=== PATIENT | male | born 1960 | race Caucasian/White ===

== ENCOUNTER 2019-09-11 16:06 | Outpatient (CLI) | payer MEDICARE, SELFPAY ==
--- NOTE | ~2019-09-11 | XR_ITS ---
EXAMINATION: XR chest 2V 09/11/2019 16:27 INDICATION: Cough for 3 months PROCEDURE: 2 view chest COMPARISON: 05/03/2007 FINDINGS: The lungs are clear. The cardiomediastinal silhouette is within normal limits. There are no pleural effusions. There is no pneumothorax suspected. IMPRESSION: 1: NO ACUTE CARDIOPULMONARY DISEASE. Reviewed, dictated and finalized at location A.
== END 2019-09-11 16:07 | disposition home or self-care (01) ==
PROVIDERS: PCP Family Medicine; Visit Provider Physician Assistant
DX: R05 Cough (principal)
CPT/HCPCS: 71046

== ENCOUNTER → 2020-10-30 11:03 | Outpatient (CLI) | payer MEDICARE, SELFPAY ==
--- NOTE | ~2020-10-30 | XR_ITS ---
EXAMINATION: XR lumbar spine 2-3V DATE: 10/30/2020 11:23 INDICATION: Low back pain low back pain TECHNIQUE: Anteroposterior and lateral views of the lumbar spine, and cone-down lateral view of the l umbosacral junction were obtained. COMPARISON: 03/11/2014 FINDINGS: Bone alignment is normal. There is no fracture. The vertebral body heights are maintained. There is unchanged mild loss of intervertebral disc space height at L1-2 and L5-S1. Small degenerativ e osteophytes project from the anterior endplates of multiple vertebral bodies. There is [id number] rate facet osteoarthritis of the lower lumbar spine. The bowel gas pattern is normal. IMPRESSION: 1. Mild lumbar spondylosis without acute findings or significant interval change. Reviewed, dictated and finalized at location A. IMPRESSION: 1. Mild lumbar spondylosis without acute findings or significant interval tina blevins
== END ==
PROVIDERS: PCP Family Medicine; Visit Provider Physician Assistant
DX: M47.816 Spondylosis without myelopathy or radiculopathy, lumbar region (principal)
CPT/HCPCS: 72100

== ENCOUNTER 2021-03-28 09:37 | Outpatient (CLI) | payer MEDICARE, SELFPAY ==
--- NOTE | ~2021-03-28 | MR_ITS ---
EXAMINATION: MR lumbar spine wo [facility] EXAM DATE: 03/28/2021 10:29 INDICATION: Low back pain. Lumbar radiculopathy. TECHNIQUE: Multi-sequential, multiplanar MR images of the lumbar spine were obtained without contrast . Sagittal T1, T2, T2 fat saturation images. Axial T2 weighted images. Comparison is made to prior examination from 04/11/2014. FINDINGS: There is a congenitally narrow lumbar spinal canal as previously seen. Mild interval progression spon dylosis compared to that study. The conus medullaris terminates at the T12-L1 level and has normal si gnal intensity and morphology. Mild diffuse lumbar disc disease. Vertebral body heights are maintain ed. The vertebral bodies are aligned in the AP dimension. There are no suspicious marrow signal abn ormalities. Paraspinal soft tissue is unremarkable. Level by level evaluation: T12-L1: Disc does not extend beyond the endplate margin. Facet arthropathy: Mild to moderate. Neural foraminal stenosis: No stenosis. Central canal stenosis: No stenosis. L1-L2: There is a mild to moderate diffuse disc bulge. Facet arthropathy: Moderate. Neural foraminal stenosis: Mild to moderate left, mild right. Central canal stenosis: Mild to moderate superimposed on congenital. L2-L3: There is a moderate diffuse disc bulge. Facet arthropathy: Moderate to severe . Ligamentum flavum enlargement. Neural foraminal stenosis: Moderate left, mild to moderate right. Central canal stenosis: Moderate to severe superimposed on congenital. L3-L4: There is a moderate diffuse disc bulge. Facet arthropathy: Moderate to severe . Ligamentum flavum enlargement. Neural foraminal stenosis: Moderate right, mild to moderate left. Central canal stenosis: Moderate to severe superimposed on congenital. L4-L5: There is a moderate diffuse disc bulge. Facet arthropathy: Moderate bilateral. Neural foraminal stenosis: Moderate bilateral. Central canal stenosis: Moderate superimposed on congenital. L5-S1: There is a mild diffuse disc bulge. Facet arthropathy: Mild. Neural foraminal stenosis: Mild to moderate bilateral. Central canal stenosis: Mild bilateral. IMPRESSION: Congenitally narrow lumbar spinal canal with advanced mid lumbar facet arthropathy and di sc bulges contributing to L2-3 and L3-4 moderate to severe central canal stenosis. Reviewed, dictated and finalized at location A. NEL OPENER IMPRESSION: Congenitally narrow lumbar spinal canal with advanced mid lumbar fa cet arthropathy and disc bulges contributing to L2-3 and L3-4 moderate to sever e central canal stenosis.
== END 2021-03-28 09:38 | disposition home or self-care (01) ==
PROVIDERS: PCP Family Medicine; Visit Provider Nurse Practitioner Family
DX: M54.16 Radiculopathy, lumbar region (principal)
CPT/HCPCS: 72148

== ENCOUNTER 2022-07-14 15:25 | Outpatient (CLI) | payer MEDICARE, SELFPAY ==
--- NOTE | ~2022-07-14 | MR_ITS ---
EXAMINATION: MR lumbar spine wo con DATE: 07/14/2022 16:32 INDICATION: Low back pain and right leg pain and numbness TECHNIQUE: Magnetic resonance imaging (MRI) of the lumbar spine was performed without intravenous con trast. Sequences included sagittal T2-weighted FSE, sagittal T2-weighted FS FSE, sagittal T1-weighted FSE, and axial T2-weighted FSE. COMPARISON: Lumbar spine MR dated 03/28/2021 FINDINGS: Alignment is normal. Vertebral body heights are normal. Normal marrow signal. Mild disc height loss at L3-L4 and L4-L5. Glenoid is a congenitally small lumbar central canal. The conus medullaris termin ates at T12-L1. There is normal signal in the caudal spinal cord. Paravertebral soft tissues are unre markable. The following disc levels are specifically discussed: T12-L1: The disc does not extend beyond the endplate margin. There is moderate bilateral facet joint osteoarthritis. There is mild right neural foraminal stenosis. There is no central canal stenosis. L1-L2: Bilateral foraminal zone disc protrusions. There is severe bilateral facet joint osteoarthriti s. There is moderate left and mild to moderate right neural foraminal stenosis. There is moderate to severe central canal stenosis. L2-L3: Disc is bulging. There is hypertrophy of the ligamentum flavum. There is severe bilateral face t joint osteoarthritis. There is a small synovial cyst extending between the bilateral facet joints p osterior to the thecal sac which measures 8 mm left to right and 5 x 3 mm in maximal orthogonal dimen sions. There is mild to moderate right and moderate left neural foraminal stenosis. There is severe c entral canal stenosis. L3-L4: Disc is bulging. There is severe bilateral facet joint osteoarthritis. There is moderate right and mild to moderate left neural foraminal stenosis. There is moderate to severe central canal steno sis. L4-L5: Disc is bulging. There is moderate right and severe left facet joint osteoarthritis. There is moderate bilateral neural foraminal stenosis. There is moderate central canal stenosis. L5-S1: Disc is mildly bulging. There is mild bilateral facet joint osteoarthritis. There is mild to m oderate bilateral neural foraminal stenosis. There is mild central canal stenosis. IMPRESSION: 1. Multilevel moderate to severe central canal and mild to moderate neural foraminal stenosis through out the lumbar spine resulting from combination of mild lumbar spondylosis and moderate to severe fac et osteoarthritis superimposed over congenitally small central canal. Reviewed, dictated and finalized at location A. IUM REPRESENTATIVE IMPRESSION: 1. Multilevel moderate to severe central canal and mild to moderate neural fora sherie stenosis throughout the lumbar spine resulting from combination of mild l umbar spondylosis and moderate to severe facet osteoarthritis superimposed over congenitally small central canal.
== END 2022-07-14 15:26 | disposition home or self-care (01) ==
LOC: ANHIMG 15:27
PROVIDERS: PCP Family Medicine; Visit Provider Physician Assistant
DX: M54.16 Radiculopathy, lumbar region (principal); M48.00 Spinal stenosis, site unspecified
CPT/HCPCS: 72148

== ENCOUNTER 2023-06-03 09:33 | Outpatient (CLI) | payer MEDICARE, SELFPAY ==
--- NOTE | ~2023-06-03 | MR_ITS ---
MRI of the lumbar spine Clinical History: Stenosis, neurogenic claudication Technique: Axial T2-weighted images, and sagittal T1-weighted, T2-weighted, and T2 fat-sat images wer e acquired. COMPARISON: 07/14/2022 Findings: There is no fracture or subluxation of the lumbar spine. Vertebral bodies maintain normal h eight and alignment. At L1-L2, disc bulge and advanced facet arthropathy result in moderate to severe spinal canal stenosi s/thecal sac compression. There is advanced left neural foraminal narrowing, and moderate to advanced right neural foraminal narrowing. At L2-L3, there is disc bulge and severe facet arthropathy, resulting in severe spinal canal stenosis /thecal sac compression. Probable small right-sided synovial cyst present. There is moderate to sever e right neural foraminal narrowing, and severe left neural foraminal narrowing. At L3-L4, disc bulge and severe facet arthropathy result in severe spinal canal stenosis/thecal sac c ompression. There is moderate to advanced right neural foraminal narrowing, and moderate left neural foraminal narrowing. At L4-L5, there is disc bulge and severe facet arthropathy. There is minimal central canal stenosis. There is moderate to severe left neural foraminal narrowing, and severe right neural foraminal narrow ing. At L5-S1, there is minimal disc bulge and mild facet arthropathy. No central canal stenosis. There is mild to moderate bilateral neural foraminal narrowing. Paravertebral soft tissues are unremarkable. Impression: Severe degenerative spondylosis, as detailed above. Reviewed, dictated and finalized at [facility]. OW GLASS CUTTER OFF Impression: Severe degenerative spondylosis, as detailed above.
== END 2023-06-03 09:34 | disposition home or self-care (01) ==
PROVIDERS: PCP Family Medicine
DX: M48.062 Spinal stenosis, lumbar region with neurogenic claudication (principal); M47.896 Other spondylosis, lumbar region
CPT/HCPCS: 72148

== ENCOUNTER 2023-11-03 10:27 | Outpatient (CLI) | payer MEDICARE, SELFPAY ==
[2023-11-03 11:38] LABS: Influenza A QL RT-PCR Negative (Negative); Influenza B QL RT-PCR Negative (Negative); RSV RNA, RT-PCR Negative (Negative); SARS-CoV-2 RNA PCR Positive (Negative)
== END 2023-11-03 10:28 | disposition home or self-care (01) ==
LOC: ANHLAB 10:27
PROVIDERS: PCP Family Medicine; Visit Provider Family Medicine
DX: J06.9 Acute upper respiratory infection, unspecified (principal); R05.9 Cough, unspecified; Z20.822 Contact with and (suspected) exposure to COVID-19
CPT/HCPCS: 87637

== ENCOUNTER 2024-02-28 03:36 | Day surgery (SDC) | payer MEDICARE, SELFPAY ==
[2024-02-14 09:10] VITALS: BMI 35.6
[2024-02-28 12:17] VITALS: BP 143/88; PULSE 60; RESP 20; TEMP 36.5; O2SAT 98
[2024-02-28] MEDS: LACTATED RINGERS 1,000 ML 150 ML IV CONT (12:25)
--- NOTE | 2024-02-28 12:41 | WPDANESEPPF ---
Anes - Initial Pre Proc Eval Procedure: Operation Date: 02/28/24 14:00 Proposed Procedures p Colonoscopy - Hernando Powell MD Date/Time: 02/28/24 12:41 Surgeon: Hernando Powell MD Pre Op Diagnosis: personal hx of colon polyp Patient Data Age: 63 Gender: M Height: 1.85 m Weight: 122.6 kg Last Vital Signs Temp 97.7 F 02/28/24 12:17 Pulse 60 02/28/24 12:17 Resp 20 02/28/24 12:17 BP 143/88 H 02/28/24 12:17 Pulse Ox 98 02/28/24 12:17 O2 Del Method Room Air 02/28/24 12:17 Allergies Allergy/AdvReac Type Severity Reaction Status Date / Time Penicillins Allergy Unknown unk Verified 02/28/24 12:14 Home Medications Medication Instructions Recorded Confirmed Type pantoprazole 40 mg tablet,delayed 40 mg PO QAM #90 tabs 06/21/23 02/28/24 Rx release gabapentin 100 mg capsule 100 mg PO BID PRN hiccups #30 caps 08/04/23 02/28/24 Rx methocarbamol 750 mg tablet 750 mg PO TID #30 tabs 08/04/23 02/28/24 Rx allopurinol 100 mg tablet See Rx Instructions .Route 09/07/23 02/28/24 Rx .COMPLEX #90 tabs citalopram 20 mg tablet 30 mg PO DAILY #135 tabs 09/07/23 02/28/24 Rx metoprolol tartrate 25 mg tablet 50 mg PO DAILY #180 tabs 09/07/23 02/28/24 Rx losartan 25 mg tablet 25 mg PO BID #180 tabs 11/13/23 02/28/24 Rx montelukast 10 mg tablet 10 mg PO DAILY 02/14/24 02/28/24 History Patient hx anesthesia problems: none Family hx anesthesia problems: none Results Review: All pre-operative results and documents have been reviewed as part of the pre-operative evaluation. [facility] Past Medical History Medical History Allergic rhinitis Depression HTN (hypertension), benign Lumbar spondylosis severe Surgical History Surgical History H/O laminectomy L1-4 History of cervical spinal surgery Family History Family History Father Family history of diabetes mellitus in first degree relative Family history of renal failure Mother Patient's mother is in good health Sibling Patient's sister is in good health Other Hypertension Social History Social History Social History: Caffeine-soda Smoking status: Never smoker Second hand tobacco smoke exposure: No Alcohol intake: never Substance use: never Substance use type: does not use Do You Feel Safe in your Home?: Yes Lack of Transportation: No Lack of Food: Never True Current Housing: I Have Housing Concerned About Future Housing: No Difficulty Paying Gas/Electric Bills: No Difficulty Paying for Meds: No Currently Unemployed: No Education: High School Diploma/GED Difficulty w/ Childcare or Family Care: No Living arrangements: with family Occupation/Education: retired Gender identity (if verbalized by the patient): Male Sexual Orientation (if Verbalized by the Patient): Straight or Heterosexual Spiritual care concerns: No Anes - Eval Final PreProcedure Day of Procedure 02/28/24 12:41 Patient weight: normal Heart: regular rate and rhythm Lungs: clear to auscultation Airway: Mallampati scale class II Neurological: alert and oriented Last oral intake: >/= 8 hours ASA classification: III Emergent: no Anesthetic plan: proceed Anesthesia type and monitoring: general GIVS and standard monitoring Results Review: All pre-operative results and documents have been reviewed as part of the pre-operative evaluation. HTN, hyperlipidemia, NAYELI on CPAP, preDM. Informed Consent: The patient's anesthetic plan and its attendant risks and benefits were discussed with the patient/family/POA. Questions were solicited and answers provided to the satisfaction of the patient/family/POA.
--- NOTE | 2024-02-28 13:24 | PM.HPGS ---
History of Present Illness History of Present Illness Consent: Risks, benefits, and alternatives have been discussed and questions answered. Patient agrees to proceed with procedure. Chief complaint: personal hx of colon polyp Narrative: Sae Arvizu is a 63 year old male with colon polyp 5 years ago Review of Systems Review of Systems: All systems reviewed & are unremarkable except as noted in HPI and below PMFSH Past Medical History Medical History (Updated 02/28/24 @ 13:27 by Hernando Powell MD) Allergic rhinitis Depression HTN (hypertension), benign Lumbar spondylosis severe Polyp, colonic Surgical History Surgical History H/O laminectomy L1-4 History of cervical spinal surgery Family History Family History Father Family history of diabetes mellitus in first degree relative Family history of renal failure Mother Patient's mother is in good health Sibling Patient's sister is in good health Other Hypertension Social History Social History Social History: Caffeine-soda Smoking status: Never smoker Second hand tobacco smoke exposure: No Alcohol intake: never Substance use: never Substance use type: does not use Do You Feel Safe in your Home?: Yes Lack of Transportation: No Lack of Food: Never True Current Housing: I Have Housing Concerned About Future Housing: No Difficulty Paying Gas/Electric Bills: No Difficulty Paying for Meds: No Currently Unemployed: No Education: High School Diploma/GED Difficulty w/ Childcare or Family Care: No Living arrangements: with family Occupation/Education: retired Gender identity (if verbalized by the patient): Male Sexual Orientation (if Verbalized by the Patient): Straight or Heterosexual Spiritual care concerns: No Meds Home Medications and Allergies Home Medications Medication Instructions Recorded Confirmed Type pantoprazole 40 mg tablet,delayed 40 mg PO QAM #90 tabs 06/21/23 02/28/24 Rx release gabapentin 100 mg capsule 100 mg PO BID PRN hiccups #30 caps 08/04/23 02/28/24 Rx methocarbamol 750 mg tablet 750 mg PO TID #30 tabs 08/04/23 02/28/24 Rx allopurinol 100 mg tablet See Rx Instructions .Route 09/07/23 02/28/24 Rx .COMPLEX #90 tabs citalopram 20 mg tablet 30 mg PO DAILY #135 tabs 09/07/23 02/28/24 Rx metoprolol tartrate 25 mg tablet 50 mg PO DAILY #180 tabs 09/07/23 02/28/24 Rx losartan 25 mg tablet 25 mg PO BID #180 tabs 11/13/23 02/28/24 Rx montelukast 10 mg tablet 10 mg PO DAILY 02/14/24 02/28/24 History Allergies Allergy/AdvReac Type Severity Reaction Status Date / Time Penicillins Allergy Unknown unk Verified 02/28/24 12:14 Vital Signs Vital Signs - 24 hr 02/28/24 12:17 Temperature 97.7 F Pulse Rate 60 Respiratory Rate 20 Blood Pressure 143/88 H Pulse Oximetry 98 Oxygen Delivery Room Air Exam Const: General: comfortable and no acute distress HENMT: Face/Nose/Sinus: Normal nares present Eyes: General: appearance normal, both eyes and all related structures Neck: Neck: no JVD Resp: Auscultation: clear to auscultation bilaterally Cardio: Rate: regular rate Rhythm: regular rhythm GI: Inspection: non-distended GI Palp: Yes Soft to palpation Skin: General skin exam: normal color Neuro: General: gait normal Speech: normal speech Extrem: General: normal to inspection Psych: Mental Status: mental status grossly normal Assessment and Plan Assessment and plan (1) Polyp, colonic: Code(s): K63.5 - Polyp of colon Status: Acute Assessment and Plan: colonoscopy
[2024-02-28 13:44] VITALS: BP 121/53; PULSE 64; RESP 20; O2SAT 99
[2024-02-28 13:54] VITALS: BP 148/95; PULSE 60; RESP 23; O2SAT 99
[2024-02-28 14:04] VITALS: BP 160/96; PULSE 57; RESP 23; O2SAT 99
== END 2024-02-28 14:38 | disposition home or self-care (01) ==
PROVIDERS: PCP Family Medicine; Visit Provider Internal Medicine Gastroenterology
PROC: 0DJD8ZZ Inspection of Lower Intestinal Tract, Via Natural or Artificial Opening Endoscopic (ICD-10-PCS; CPT 45378; principal; 2024-02-28 14:00)
DX: Z12.11 Encounter for screening for malignant neoplasm of colon (principal); K63.5 Polyp of colon; K64.8 Other hemorrhoids; K57.30 Diverticulosis of large intestine without perforation or abscess without bleeding; I10 Essential (primary) hypertension; F32.A Depression, unspecified; M43.06 Spondylolysis, lumbar region; Z98.890 Other specified postprocedural states; Z98.1 Arthrodesis status
CPT/HCPCS: 45385; 88305; J2003; J2704; J7120

== ENCOUNTER 2024-02-28 11:36 | Outpatient (CLI) | payer MEDICARE, SELFPAY ==
[2024-02-28 12:47] LABS: Alanine Aminotransferase 31 U/L (6-50); Albumin Level 4.3 g/dL (3.5-5.1); Alkaline Phosphatase 75 U/L (38-126); Anion Gap 7 mmol/L (4-12); Aspartate Amino Transferase 33 U/L (17-59); Bilirubin,Total 1.1 mg/dL (0.2-1.3); Blood Urea Nitrogen 13 mg/dL (9-20); Calcium 8.8 mg/dL (8.4-10.2); Carbon Dioxide 27 mmol/L (22-30); Chloride 104 mmol/L (98-107); Estimated Glomerular Filt Rate > 60; Glucose 101 mg/dL (65-110); Potassium 4.5 mmol/L (3.4-5.0); Sodium 138 mmol/L (137-145)
== END 2024-02-28 11:37 | disposition home or self-care (01) ==
LOC: ANHLAB 11:39
PROVIDERS: PCP Family Medicine; Visit Provider Family Medicine
DX: I10 Essential (primary) hypertension (principal)
CPT/HCPCS: 36415; 80053

== ENCOUNTER 2024-03-05 17:10 | Outpatient (CLI) | payer MEDICARE, SELFPAY ==
--- NOTE | ~2024-03-05 | XR_ITS ---
Clinical Indication: Cough PA and lateral views of the chest: Comparison: 09/11/2019 Findings: The lungs are clear, without evidence of focal consolidation or pleural effusion. Cardiome diastinal silhouette is within normal limits. Bones and soft tissues are unremarkable. Impression: Normal chest. Reviewed, dictated and finalized at [facility]. Impression: Normal chest.
== END 2024-03-05 17:11 | disposition home or self-care (01) ==
PROVIDERS: PCP Family Medicine
DX: R05.3 Chronic cough (principal)
CPT/HCPCS: 71046

== ENCOUNTER 2024-06-12 08:53 | Outpatient (CLI) | payer MEDICARE, SELFPAY ==
--- OUTSIDE RECORDS SUMMARY | 2024-06-12 09:05 | XMS_ITS | Clinical Summary ---
Author Organization [facility] Address [address] [place] [address] Care Team Providers Care Parking Meter Servicer Name Role Phone Jim Whalen MD Primary Care Provider [phone] Allergies No known active allergies Medications escitalopram 10 MG tablet Take 30 mg by mouth daily. Active allopurinol 100 MG tablet Take 100 mg by mouth daily. Active pantoprazole EC 40 MG tablet Take 40 mg by mouth daily. Active metoprolol tartrate 50 MG tablet Take by mouth 2 (two) times daily. Active losartan 25 MG tablet Take 25 mg by mouth daily. Active Family History Medical History Relation Comments Diabetes Father back, leg and feet issues. Sister Relation Status Comments Father Sister Alive Social History Tobacco Use Types Packs/Day Years Used Date Smoking Tobacco: Never Smokeless Tobacco: Never Alcohol Use Standard Drinks/Week Comments Not Currently 0 (1 standard drink = 0.6 oz pur e alcohol) Education Answer Date Recorded What is the highest level of school you have completed or the highest degree you have received? High school graduate 08/20/2021 Sex and Gender Information Value Date Recorded Sex Assigned at Not on file Legal Sex Male 7:16 PM CDT Gender Identity Not on file Sexual Orientation Not on file Last Filed Vital Signs Vital Sign Reading Time Taken Comments Blood Pressure 129/78 08/04/2023 3:30 PM CDT Pulse 77 08/04/2023 3:30 PM CDT Temperature 36.4 ??C (97.5 ??F) 08/04/2023 1:21 PM CD T Respiratory Rate 18 08/04/2023 3:30 PM CDT Oxygen Saturation 100% 08/04/2023 3:30 PM CDT Inhaled Oxygen Concentration - - Weight 127 kg (280 lb) 08/04/2023 1:21 PM CDT Height 185.4 cm (6' 1 ) 08/04/2023 1:21 PM CDT Body Mass Index 36.94 08/04/2023 1:21 PM CDT Plan of Treatment Health Maintenance Due Date Last Done Comments Colorectal Cancer Screening Colonoscopy (10 Years) 1962 Annual Physical 1965 Hepatitis C 1980 Zoster Vaccines (1 of 2) 2012 COVID-19 Vaccine (3 - 2023-2 5 season) 2024 07/25/2020, 07/04/2020 Influenza Adult (#1) 2024 03/19/2020, 03/06/2015 DTaP, Tdap and Td Vaccines ( 3 - Td or Tdap) 06/03/2025 06/03/2015, 04/22/2015 RSV Immunization or 60+ Years (1 - 1-dose 75+ series) 2037 Meningococcal B Vaccine Aged Out No l onger eligible based on patient's age to complete this topic Meningococcal Vaccine Aged Out No yesi romero eligible based on patient's age to complete this topic Pneumococcal Vaccine: Pediatrics (0 to 5 Years) and At-Risk Patients (6 to 64 Years) Aged Out No longer eligible b ased on patient's age to complete this topic RSV Immunizations Under 20 Months Aged Out No longer eligible b ased on patient's age to complete this topic Insurance [employer] Care Teams Parking Meter Servicer Relationship Specialty Start Date End Date Jim Whalen MD [id number] [facility] [address] [place] [address] PCP - General FAMILY PRACTICE 08/20/21
--- NOTE | 2024-07-05 21:46 | WPDSLEEPSTUD ---
Sleep Study Date of Study: 06/12/24 Ordering Provider: SARAY Martinez Interpreting Physician: Junie Wilcox MD Sleep Study Type: Split Polysomnogram Height: 1.85 m Weight: 124.738 kg Body Mass Index: 36.3 Neck Circumference (inches): 19 Temple: 7 Reason for Sleep Study Patient is having a sleep study to qualify for new CPAP equipment. He fernandez a long history of obstructive sleep apnea, his current machine is over 20 years old, and he has acted out his dreams for as long as he has had sleep apnea. Sleep History Sae Arvizu is a 63-year-old man with obstructive sleep apnea, is retesting order to get new equipment. He has used CPAP for 20 years. His current machine is very old and he can not get any information downloaded off of it. He uses a nasal mask at home. He does have a history of acting out his dreams which he does a few times per week. He told the tech that on one occasion, he fell out of bed and hit his head. His medical comorbidities include hypertension, obstructive sleep apnea and depression. He never awakens from sleep feeling short of breath. He occasionally wakes at night with heartburn, belching or coughing.??He always snores, and this is constantly loud enough that others complain. He occasionally has trouble sleeping when he has a cold. He never wakes up gasping for breath during the night. He rarely has breathing problems at night observed by others. He occasionally sweats excessively at night. He never notices his heart pounding or beating irregularly during the night. He occasionally falls asleep during the day. He frequently falls asleep involuntarily, occasionally falls asleep while driving. He never experiences loss of muscle tone with strong emotion. He occasionally has daytime difficulty at work due to excessive sleepiness. He never feels paralyzed on waking or falling asleep. He constantly experiences vivid dreams upon waking or falling asleep. He rarely feels afraid of going to sleep. He frequently has nightmares. He occasionally recalls his dreams. He is frequently awakened by his dreams. He occasionally has thoughts racing through his mind. He occasionally feels sad or depressed. He rarely feels anxiety. He occasionally notices parts of his body jerk. He frequently kicks during the night. He rarely feels crawling or aching feelings in his legs. He rarely feels leg pain at night. He never has morning jaw pain, never grinds his teeth at night. He constantly feels bothered by pain during the day, frequently awakened by pain during the night. He frequently wakes up feeling stiff in the morning, and he frequently wakes feeling sore or achy. He frequently awakens with pain in his neck, spine, or joints. His office note indicates that he has a history over 20 years of acting out his dreams at least 1 or 2 times per week, hitting or punching. He has fallen out of bed several times in last few years once resulting in a facial injury. Normal bedtime is 11:00 p.m., falling asleep within 45 minute, waking 3 times at night. When he awakens at night he goes to the bathroom or stays in bed until he returns to sleep. Wake time is 8:00 a.m.. He typically gets 7 hours of sleep per night. His weekend schedule is the same. He takes naps in the day in the afternoon or evening, however a short nap lasting 10-15 minutes is not refreshing. He is drowsy for 2 hours after waking. Habits:??Tobacco: Never smoker Caffeine: 100 oz. Diet soda per day. Alcohol: None Recreational substances: none PMFSH Past Medical History Medical History Obstructive sleep apnea Polyp, colonic Lumbar spondylosis severe Allergic rhinitis Depression HTN (hypertension), benign Surgical History Surgical History H/O laminectomy L1-4 History of cervical spinal surgery Family History Family History Father Family history of diabetes mellitus in first degree relative Family history of renal failure Mother Patient's mother is in good health Sibling Patient's sister is in good health Other Hypertension Social History Social History Social History: Caffeine-soda Smoking status: Never smoker Second hand tobacco smoke exposure: No Alcohol intake: never Substance use: never Substance use type: does not use Do You Feel Safe in your Home?: Yes Lack of Transportation: No Lack of Food: Never True Current Housing: I Have Housing Concerned About Future Housing: No Difficulty Paying Gas/Electric Bills: No Difficulty Paying for Meds: No Currently Unemployed: No Education: High School Diploma/GED Difficulty w/ Childcare or Family Care: No Living arrangements: with family Occupation/Education: retired Gender identity (if verbalized by the patient): Male Sexual Orientation (if Verbalized by the Patient): Straight or Heterosexual Spiritual care concerns: No Medications Home Medications ?Medication ?Instructions ?Recorded ?Confirmed ?Type allopurinol 100 mg tablet See Rx Instructions .Route 09/07/23 07/01/24 Rx .COMPLEX #90 tabs losartan 25 mg tablet 25 mg PO BID #180 tabs 05/03/24 07/01/24 Rx citalopram 20 mg tablet 30 mg (1.5 x 20 mg) PO DAILY #135 05/21/24 07/01/24 Rx tabs pantoprazole 40 mg tablet,delayed 40 mg PO QAM #90 tabs 05/27/24 07/01/24 Rx release benzonatate 100 mg capsule 200 mg (2 x 100 mg) PO TID PRN 07/01/24 07/01/24 Rx cough #60 caps Sleep Procedure A split night polysomnogram using the [employer] multi-channel system recorded the standard physiologic parameters including EEG, EOG, submentalis EMG, anterior tibialis EMG, EKG, body position, nasal and oral airflow using nasal pressure sensor and thermistor. Respiratory parameters of chest and abdominal movements were recorded with Respiratory Inductance Plethysmography belts. Oxygen saturation was recorded by pulse oximetry. Video monitoring was also performed. Sleep stages, periodic limb movements, and EEG arousals were scored in 30 second epochs according to the criteria of the AASM Scoring Manual. The Apnea-Hypopnea Index was calculated using CMS guidelines for definition of hypopnea while scoring respiratory events. The patient self-administered Lunesta 2 mg at the beginning of the study. After the baseline portion, the patient met criteria for a titration with an AHI of 66.6 and desaturation to 78%. CPAP was started using a medium Mathews [employer] Solo nasal mask and heated humidity, initial pressure was CPAP 5 cm, titrated to 7 cm, 9 cm, 11 cm, 13 cm and 15 cm of water pressure. At 15 cm, the patient spent 48.5 minutes in bed, 5.5 minutes awake, 3.5 minutes in non-REM and 39.5 minutes in REM. Sleep efficiency was 88.7%. The residual apnea-hypopnea index was 4.2 with a minimum saturation of 91%. Supine REM occurred. Sleep was more consolidated. This is the optimal pressure. Sleep Architecture During the diagnostic portion of the study, the total recording time was 221.5 minutes. The total sleep time was 168.5 minutes. Sleep latency was 8.0 minutes. There was no REM on the baseline so no REM latency. Sleep Efficiency was 76.1%. The patient had 38 awakenings for an awakening index of 13.5. Wake after sleep onset time was 45.0 minutes. The patient spent 37.0 minutes, 22.0% of total sleep time in Stage N1. The patient spent 131.5 minutes, 78.0% in Stage N2. The patient spent no time in Stage N3 or Stage REM sleep. At 02:32:56 AM the patient qualified for split night study with an apnea-hypopnea index of 66.6 and desaturation to 78%. He was placed on PAP treatment using a medium nasal a Mathews [employer] Paykel Solo mask, was titrated at pressures ranging from CPAP 5 cm, increasing by increments of 2 cm up to a maximum of CPAP 15. During the treatment portion of the study, the total recording time was 231.6 minutes. The total sleep time was 189.5 minutes. Sleep latency was 4.0 minutes. REM latency was 58.0 minutes. Sleep Efficiency was 81.8%. Wake after Sleep Onset time was 38.0 minutes. The patient spent 24.5 minutes, 12.9% of total sleep time in Stage N1. The patient spent 98.5 minutes, 52.0% in Stage N2. The patient spent 9.0 minutes, 4.7% in Stage N3. The patient spent 57.5 minutes, 30.3% in Stage REM. The patient had evidence of REM behavior during both REM periods, and this him of all of the majority of the hep ox of REM sleep. He showed gross motor movement especially in the left arm and both legs. This was visible on the video. This occurred while he was being titrated on CPAP. Melatonin did not appear on his medication list likely because this is a supplement. He was started on melatonin at his office visit with Blossom Her PA-C on May 07. Respiratory Analysis During the diagnostic portion of the study, the patient had 88 hypopneas, 99 obstructive apneas, 1 mixed apneas, and no central apneas for an overall Apnea Hypopnea Index of 66.6 events per hour. The REM Apnea Hypopnea Index was 0, no REM was present on the baseline. The NREM Apnea Hypopnea Index was 66.6. The patient had a Central Apnea Hypopnea Index of 0. There were no Respiratory Effort Related Arousals The Respiratory Disturbance Index is 72.3 events per hour. There was no evidence of Talon-Deleon Respirations. The supine index was 93.7. The nonsupine index was 62.8. During the treatment portion of the study, the patient had 36 hypopneas, 13 obstructive apneas, 2 mixed apneas, and 2 central apneas for an overall Apnea Hypopnea Index of 16.8 events per hour. The REM Apnea Hypopnea Index was 11.5. The NREM Apnea Hypopnea Index was 19.1. The patient had a Central Apnea Hypopnea Index of 0.6. There were no Respiratory Effort Related Arousals. The Respiratory Disturbance Index is 20.6 events per hour. There was no evidence of Talon-Deleon Respirations. Arousals During the diagnostic portion of the study, there were a total of 189 arousals for an arousal index of 67.3. There were 68 respiratory arousals for an index of 24.2. There were 10 periodic limb movement arousals for an index of 3.6. There were 2 isolated limb movement arousals for an index of 0.7. There were 110 spontaneous arousals for an index of 39.2. During the treatment portion of the study, there were a total of 66 arousals for an index of 20.9. There were 21 respiratory arousals for an index of 6.6. There were 4 periodic limb movement arousals for an index of 1.3. There were 2 isolated limb movement arousals for an index of 0.6. There were 39 spontaneous arousals for an index of 12.3. Periodic Limb Movements During the diagnostic portion of the study, the patient had 5 isolated limb movements with an index of 1.8. The patient had 76 periodic limb movements with an index of 27.1. The patient had a total of 81 limb movements with a total limb movement index of 28.8. During the treatment portion of the study, the patient had 14 isolated limb movements with an index of 4.4. The patient had 107 periodic limb movements with an index of 33.9. The patient had a total of 121 limb movements with a total limb movement index of 38.3. Oximetry Data During the diagnostic portion of the study, the patient had an average oxygen saturation of 92% in wake with a minimum oxygen saturation of 79 % and a maximum oxygen saturation of 97%. The patient had an average oxygen saturation of 91.5% in sleep with a minimum oxygen saturation of 78% and a maximum oxygen saturation of 98%. The patient had 196 oxygen desaturations resulting in an Oxygen Desaturation Index of 70.5. The patient spent 38.7 minutes, 17.5% of total sleep time with an oxygen saturation less than 88%. During the treatment portion of the study, the patient had an average oxygen saturation of 92.5% in wake with a minimum oxygen saturation of 82% and a maximum oxygen saturation of 97%. The patient had an average oxygen saturation of 93% in sleep with a minimum oxygen saturation of 78% and a maximum oxygen saturation of 97%. The patient had 71 oxygen desaturations resulting in an Oxygen Desaturation Index of 22.5. The patient spent 9.5 minutes, 4.1% of total sleep time with an oxygen saturation less than 88%. Snoring Profile Snoring was mild to moderate, eliminated at CPAP 15 cm. Cardiac Profile During the diagnostic portion of the study, the EKG showed normal sinus rhythm. The average pulse rate was 54.9 bpm, minimum pulse rate was 45 bpm, maximum pulse rate was 73 bpm. No arrhythmias noted. During the treatment portion of the study, the EKG showed normal sinus rhythm. The average pulse rate was 53.7 bpm. The minimum pulse rate was 48 bpm. The maximum pulse rate was 68 bpm. No arrhythmias noted. EEG Profile EEG was unremarkable, no evidence of seizures. Assessment and Plan Assessment and Plan (1) Obstructive sleep apnea: Code(s): G47.33 - Obstructive sleep apnea (adult) (pediatric) Status: Acute Assessment and Plan: This split night sleep study on 06/12/2024 shows severe obstructive sleep apnea, the baseline apnea-hypopnea index is 66.6 with desaturation to 78% using a medium Mathews [employer] Paykel Solo nasal mask and heated humidity with an optimal pressure of CPAP 15 cm. The residual apnea-hypopnea index is 4.2 and the lowest saturation was 91%. A small amount of supine REM occurred at this pressure, most of the REM was in the left lateral position. He using a nasal mask, he may have nights where he does not tolerate CPAP 15 which is a significant pressure. His history includes hayfever and allergies. He may need a backup fullface mask to use on nights if he cannot tolerate the nasal mask. The patient should be prescribed this [employer] equipment as well as tubing, filters and reservoir. This should be used with all episodes of sleep. Compliance should be reviewed within 31-90 days of starting therapy for usage greater than 4 hours per night greater than 70% of the nights. The patient should be asked about symptoms such as excessive daytime sleepiness, quality of sleep, decreased nocturia, increased mental functioning such as memory, mood, and concentration. BMI is 36. Weight management is advised. Clinical data suggests that weight loss of 10% can reduce the severity of respiratory events and snoring and improve AHI by as much as 25%. The patient has sleep history comments that he kicks excessively at night however he does not have uncomfortable irritating feelings in his legs before sleep. On this study, he had an elevated periodic limb movement index of 27 on the baseline in 33 on the treatment portion however he did have limb movements that woke him. His limb movement arousal index was low on both portions. He had a ferritin that was 165 in March 2022. He does not really meet criteria for either restless legs syndrome or periodic limb movement disorder because these do not wake him. Clinical correlation is recommended. These leg movements may improve with regluar PAP therapy. (2) REM behavioral disorder: Code(s): G47.52 - REM sleep behavior disorder Status: Acute Assessment and Plan: The patient gives a history of 20+ years of acting out his dreams. He has been treated for obstructive sleep apnea during this same time. REM behavior was noted during both REM episodes during this study with gross motor movements including the left arm and both legs as well as muscle activation during REM that was not seen on the video. The patient was prescribed grind melatonin on May 07 to take before bedtime with an increasing dose starting at 3 mg and increasing up to a maximum of 18 mg in order to control these events. I do not know what dose the patient was on when he had this study but he did have frequent REM without atonia. Clinical correlation is recommended. In addition to melatonin, treating his obstructive sleep apnea will improve his REM behavior disorder. Are BD is precipitated by nocturnal hypoxemia. REM behavior disorder safety Establishing a safe sleeping environment is the primary goal of treatment. This can be achieved through modification of the sleep environment and, if necessary, pharmacotherapy. In the absence of large clinical trials, recommendations are based primarily on observational studies and accumulated clinical experience in concerned patients at risk for life-threatening injury.. Although small controlled trials have failed to show consistent improvement with pharmacotherapy, the authors' experience is that both melatonin and?clonazepam?are effective in suppressing rapid eye movement (REM) sleep behavior disorder (RBD) behaviors in the majority of patients, and that melatonin may be better tolerated, particularly among older adults with neurodegenerative disorders. Recommendations below are generally consistent with the clinical practice guideline from the [place] [employer]. Safe sleeping environment?-The frequency of dream enactment behaviors is not predictive of injury, so all patients with RBD and their bed partners should be counseled on modifying the sleeping environment to prevent injury. For patients with mild symptoms, this may be all that is needed. The punching, kicking, and jumping behaviors can result in hematomas, fractures, lacerations, and joint dislocations. Bed partners are frequently the target of violent dream enactment, and RBD has rarely been implicated in charges of domestic assault. Firearms should not be accessible, and sharp or easily breakable furniture and objects (such as lamps) should be removed from the immediate sleeping area. In the event of continued vigorous behaviors, sleeping alone is advised. Many patients resort to using padded bed rails or sleeping in a sleeping bag Exiting the bed while acting out a dream is a high-risk behavior that may result in traumatic injury.?A bed alarm that delivers a customized calming message at the onset of dream enactment can prevent a patient from exiting the bed and avert sleep-related injury Reversible factors?- Medications known to exacerbate RBD, including the serotoninergic antidepressants, should be discontinued or avoided if possible in patients with RBD . Many cases of medication-associated dream enactment are self-limited following discontinuation of the offending medication. In patients with a sleep-fragmenting condition such as obstructive sleep apnea, dream-enactment behavior often resolves when the underlying disorder is treated.. The duration and circadian timing of sleep should be optimized as well. Pharmacotherapy - All patients with frequent, disruptive, or injurious behaviors should be treated with pharmacotherapy to reduce behaviors and lower risk of injury. Data The data obtained during this sleep study is adequate for interpretation. Certification This sleep study has been reviewed by a board certified sleep medicine physician.
[2024-07-08 09:54] VITALS: BMI 36.3
== END 2024-06-13 07:04 | disposition home or self-care (01) ==
PROVIDERS: PCP Family Medicine; Visit Provider Physician Assistant
DX: G47.33 Obstructive sleep apnea (adult) (pediatric) (principal); G47.52 REM sleep behavior disorder
CPT/HCPCS: 95811

== ENCOUNTER 2024-08-20 01:29 | Day surgery (SDC) | payer MEDICARE, SELFPAY ==
[2024-08-16 11:26] VITALS: BMI 36.3
--- OUTSIDE RECORDS SUMMARY | 2024-08-20 01:38 | XMS_ITS | Clinical Summary ---
Author Organization [facility] Address [address] [place] [address] Care Team Providers Care Mapping Specialist Name Role Phone Jim Whalen MD Primary Care Provider Allergies No known active allergies Medications escitalopram [...] 77 08/04/2023 3:30 PM CDT Temperature 36.4 C (97.5 F) 08/04/2023 1:21 PM CDT Respiratory Rate 18 08/04/2023 3:30 PM CDT [...] - 2023-2 5 season) 2024 07/25/2020, 07/04/2020 DTaP, Tdap and Td Vaccines ( 3 [...] 5 Years) and At-Risk Patients (6 to 49 Years) Aged Out No longer eligible b ased on patient's age to complete this topic RSV Immunizations Under 20 Months Aged Out No longer eligible b ased on patient's age to complete this topic Insurance [employer] Care Teams Mapping Specialist Relationship Specialty Start Date End Date Jim Whalen MD [id number] [facility] [address] [place] [address] PCP - General FAMILY PRACTICE 08/20/21
--- OUTSIDE RECORDS SUMMARY | 2024-08-20 01:38 | XMS_ITS ---
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 Chest X-RAY ordered that returned normal. Trialed ipratropium bromide with mild noted benefit. Also trialed ICS/LABA without benefit., ARCfollow-up: Typically gets 1-2 Kenalog injections each Fall. Continues to follow avoidance measures and medication regimen. Medications Medication SIG (Take, Route, Frequency, Duration) Notes Start Date End Date Status AeroChamber MV - as directed for 30 days Any adult spacer Active Wixela Inhub 250-50 MCG/ACT 1 puff Inhalation Twice a day for 30 days 04/15/2024 Active Montelukast Sodium 10 MG Take 1 tablet b y mouth once daily for 30 Active Fluticasone Propionate 50 MCG/ACT 1 spray in each nostril Nasally Twice a day for 30 days Active Fexofenadine HCl 180 MG 1 tablet Orally Once a day for 30 days Active Pantoprazole Sodium 40 MG 1 tablet Orally Once a day Active Ipratropium [place] 0.06 % 2 sprays in e ach nostril Nasally Three times a day for 30 days Active Citalopram Hydrobromide 20 MG 1 tablet Orally Once a day A ctive Albuterol Sulfate HFA 108 (90 Base) MCG/ACT 2 puffs as needed Inhalation every 4 hrs for 30 days Active Fluticasone-Salmeterol 115-21 MCG/ACT 2 puffs Inhalation Twice a day for 30 days Active Montelukast Sodium 10 MG 1 tablet Orally Once a day for 30 days Active Metoprolol Tartrate 50 MG 1 tablet with food Orally Twice a day Active Azelastine HCl 137 MCG/SPRAY 2 sprays in each nostril Nasally Twice a day for 30 days Active Nasal Washes N/A as directed intranasally Active Losartan Potassium 25 MG 1 tablet Orally Once a day Active Social History Tobacco Use: Social History Observation Description Date Details (start date - stop date) Never Smoker NA - NA Tobacco Control (Standard) Question Answer Notes Tobacco use: Nonsmoker Vital Signs Blood pressure systolic 153 mm Hg 06/17/19 25 Blood pressure diastolic 54 mm Hg 025 Height 73 in 06/17/2024 Weight 277.6 lbs 06/17/2024 BMI 36.62 kg/m2 06/17/2024 Oximetry 96 % 06/17/2024 Encounters Encounter Location Date Provider Diagnosis [facility] [address] [id number] 06/17/2024 Suki Krueger Allergic rhinitis du e to pollen J30.1 ; Chronic cough R05.3 ; Allergic rhinitis due to animal (cat) (dog) hair and dander J30.81 ; Other allergic rhinitis J30.89 ; Other chronic allergic conjunctivitis H10.45 and Essential (primary) hypertension I10 Assessments Encounter Date Diagnosis (ICD Code) Assessment Notes Treatment Notes Treatment Clinical Notes Section Notes 06/17/2024 Allergic rhinitis due to pollen (ICD-10 - J30.1) Petros clearly suffers from atopic disease based upon our skin testing and clinical history. Accordingly, we have encouraged his medication regimen, discussed nasal washes and allergy-specific avoidance measures. We also discussed adjunctive therapies including subcutaneous, specific allergen immunotherapy as relates to the treatment and prevention of atopic disease. - Thoroughly discussed the potential systemic side effects caused by glucocorticoid injections (glaucoma, cataracts, osteoporosis, diabetes). Discussed with Petros that regular Kenalog injections for management of ARC is not recommended as first-line therapy. - Petros is not interested in SCIT at this time. He would like to hold LTRA at this time. - Highly consider SCIT. - Follow-up in 2 months as above for interval evaluation and management 06/17/2024 Chronic cough (ICD-10 - R05.3) Petros presented two months ago with new complaints of daily cough ongoing for 3-4 weeks. He denies shortness of breath or wheezing. He denies clear trigger, does not recall being sick. He describes the cough as productive. No history of inhaler use or hospitalizations due to lower airway symptoms. - Spirometry obtained last visit that showed reduced FVC, however TLC not measured, normal FEV1 and FEV%. Repeat today showing normal FEV1, FVC and FEV%. Report not saved due to technical error. Reviewed prior to this. - Attempted spirometry at a prior visit, however Petros was unable to complete the test due to coughing. Performed nebulized albuterol treatment to assess for perceived benefit. Petros did not find this beneficial, was still unable to perform spirometry s/p MIKHAIL. - Lungs were clear to auscultation in all lungs field on PE. - Considerations for cough include atopic disease vs RAD vs post-infectious cough vs GERD vs other. Last visit ordered chest X-RAY for further evaluation, which returned unremarkable. Petros returns today after trial of ICS/LABA, which he reports has not been beneficial. He also reports today maybe I have always coughed, I don't remember. - Due to Petros's lack of perceived benefit, he would like to hold nasal sprays and ICS/LABA to assess for change in symptoms. - Petros has history of GERD, he is on pantoprazole. Instructed him to contact his PCP to discuss evaluation. Consider GI evaluation. Petros voiced understanding and agreement. - Due to persisting symptoms, consider consult with pulmonology. We discussed this again today. Petros voiced understanding. - Follow-up in two months for further evaluation and management 06/17/2024 Allergic rhinitis due to animal (cat) (dog) hair and dander (ICD-10 - J30.81) Follow allergen avoidance, meds and consider SCIT as an adjunctive treatment to current regimen 06/17/2024 Other allergic rhinitis (ICD-10 - J30.89) Follow allergen avoidance, meds and consider SCIT as an adjunctive treatment to current regimen 06/17/2024 Other chronic allergic conjunctivitis (ICD-10 - H10.45) Given ocular signs and symptoms I encouraged allergy avoidance measures and meds as above. If symptoms persist, consider adding additional medications including intraocular antihistamine/mast cell stabilizer, PRN and consider SCIT as an adjunctive measure 06/17/2024 Essential (primary) hypertension (ICD-10 - I10) BP elevated today without symptoms of urgency or emergency. Continue serial checks and follow-up with PCP - If Petros pursues SCIT need to discuss holding BB Plan Of Treatment Medication Medication Name Sig Start Date Stop Date Notes AeroChamber MV - as directed for 30 days Fluticasone Propionate 50 MCG/ACT 1 spray in each nostril Nasally Twice a day for 30 days Fexofenadine HCl 180 MG 1 tablet Orally Once a day for 30 days Pantoprazole Sodium 40 MG 1 tablet Orally Once a day Ipratropium [place] 0.06 % 2 sprays in e ach nostril Nasally Three times a day for 30 days Citalopram Hydrobromide 20 MG 1 tablet Orally Once a day Albuterol Sulfate HFA 108 (9 0 Base) MCG/ACT 2 puffs as needed Inhalation every 4 hrs for 30 days Fluticasone-Salmeterol 115-2 1 MCG/ACT 2 puffs Inhalation Twice a day for 30 days Montelukast Sodium 10 MG 1 tablet Orally Once a day for 30 days Metoprolol Tartrate 50 MG 1 tablet with food Orally Twice a day Azelastine HCl 137 MCG/SPRAY 2 sprays in each nostril Nasally Twice a day for 30 days Nasal Washes N/A as directed intranasally Losartan Potassium 25 MG 1 tablet Orally Once a day Treatment Notes Assessment Notes Allergic rhinitis due to pollen Petros clearly suffers from atopic disease based upon our skin testing and clinical history. Accordingly, we have encouraged his medication regimen, discussed nasal washes and allergy-specific avoidance measures. We also discussed adjunctive therapies including subcutaneous, specific allergen immunotherapy as relates to the treatment and prevention of atopic disease. - Thoroughly discussed the potential systemic side effects caused by glucocorticoid injections (glaucoma, cataracts, osteoporosis, diabetes). Discussed with Petros that regular Kenalog injections for management of ARC is not recommended as first-line therapy. - Petros is not interested in SCIT at this time. He would like to hold LTRA at this time. - Highly consider SCIT. - Follow-up in 2 months as above for interval evaluation and management Chronic cough Petros presented two months ago with new complaints of daily cough ongoing for 3-4 weeks. He denies shortness of breath or wheezing. He denies clear trigger, does not recall being sick. He describes the cough as productive. No history of inhaler use or hospitalizations due to lower airway symptoms. - Spirometry obtained last visit that showed reduced FVC, however TLC not measured, normal FEV1 and FEV%. Repeat today showing normal FEV1, FVC and FEV%. Report not saved due to technical error. Reviewed prior to this. - Attempted spirometry at a prior visit, however Petros was unable to complete the test due to coughing. Performed nebulized albuterol treatment to assess for perceived benefit. Petros did not find this beneficial, was still unable to perform spirometry s/p MIKHAIL. - Lungs were clear to auscultation in all lungs field on PE. - Considerations for cough include atopic disease vs RAD vs post-infectious cough vs GERD vs other. Last visit ordered chest X-RAY for further evaluation, which returned unremarkable. Petros returns today after trial of ICS/LABA, which he reports has not been beneficial. He also reports today maybe I have always coughed, I don't remember. - Due to Petros's lack of perceived benefit, he would like to hold nasal sprays and ICS/LABA to assess for change in symptoms. - Petros has history of GERD, he is on pantoprazole. Instructed him to contact his PCP to discuss evaluation. Consider GI evaluation. Petros voiced understanding and agreement. - Due to persisting symptoms, consider consult with pulmonology. We discussed this again today. Petros voiced understanding. - Follow-up in two months for further evaluation and management Allergic rhinitis due to ani mal (cat) (dog) hair and dander Follow allergen avoidance, meds and consider SCIT as an adjunctive treatment to current regimen Other allergic rhinitis Follow allergen avoidance, meds and consider SCIT as an adjunctive treatment to current regimen Other chronic allergic conjunctivitis Gi phillip ocular signs and symptoms I encouraged allergy avoidance measures and meds as above. If symptoms persist, consider adding additional medications including intraocular antihistamine/mast cell stabilizer, PRN and consider SCIT as an adjunctive measure Essential (primary) hypertension BP elevated today without symptoms of urgency or emergency. 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 Chest X-RAY ordered that returned normal. Trialed ipratropium bromide with mild noted benefit. Also trialed ICS/LABA without benefit.ARC follow-up: Typically gets 1-2 Kenalog injections each Fall. Continues to follow avoidance measures and medication regimen. * HPI: * Introduction: I had the pleasure of seeing Gladis Arvizu, a 63-year-old male with past medicalhistory significant for hypertension, GERD and ARC who returns for ARC and cough follow-up. He is alone for today's visit. Petros reports longhistory of hayfever. He was previously seen by Dr. Browne, ENT, who hestates would give him a Kenalog injection 1-2 times each Fall to treat hissymptoms. Petros states he has been doing this for forty years. He reports Dr. Brownerecently retired, due to this his symptoms have increased. Skin testing was performed last visit to aeroallergens that showed positive results to multiple seasonal and perennial allergens. He is now taking Singulair, Kimber and azelastine with mild benefit. He continues to report drainage and gunk. He presented approximately two months ago with new onset cough. Petros denies clear triggers, does not recall being sick. With that said, he admits to being a poor historian stating I don't know, maybe I have always coughed. He describes the cough as productive. He denies shortness of breath or wheezing. No history of hospitalizations due to lower airway symptoms. He denies smoking history. Started trial of ipratropium bromide, which last visit he reported has been mildly beneficial. We ordered a chest X- RAY that returned normal. Cough was still occurring daily, due to this we started ICS/LABA. Petros returns today, stating he does not feel this has been beneficial. He is still coughing throughout the day. He admits to history of GERD, takes pantoprazole daily which he has been on forever. Today, he reports no fevers, chills, night sweats or other constitutional symptoms. * ROS: A LLERGY: runny nose Y es. s cratchy throat N o. i tchy eyes Y es. e ar fullness N o. s inus congestion Y es. P ositive p er the HPI and history, otherwise unremarkable. S PECIAL SENSES: Positve for n one. c ataracts N o. g laucoma?No. l oss of hearing Y es. i tching in ears Y es. r inging in ears Y es.?loss of balance N o. l oss of smell N o. d ry eyes N o. e xcessive tearing N o. i tching eyes Y es. l oss of taste N o. c onjunctivitis N o.?ear infections N o. C ONSTITUTIONAL: weight gain N o. l oss of appetite N o. f ever?No. w eakness N o. w eight loss N o. f atigue Y es. n ight sweats?Yes. P ositive for n one. E NT: cold N o. c ough N o. e pistaxis N o. h earing loss Y es. c hange in voice N o. s ore throat N o. r inging in ears?Yes. s inus pain N o. P ositive p er the HPI and history, otherwise unremarkable. R ESPIRATORY: shortness of breath N o. c hest pain N o. c hest congestion N o. c ough Y es. P ositive p er the HPI and history, otherwise unremakable. O PHTHALMOLOGY: diminished vision Y es. e ye irritation Y es. d rainage from eyes N o. b lurring of vision N o. s easonal eye sx Y es. P ositive for p er the HPI and history, otherwise unremarkable. i tching Y es. s ensitivity to light Y es. d ischarge N o. w atering Y es. s welling of the eyelids?No. r edness Y es. E NDOCRINOLOGY: fatigue Y es. p olydipsia N o. p olyuria N o. w eight loss N o. s leep disturbance Y es. c old intolerance N o. h eat intolerance N o. d iabetes N o. P ositive for n one. C ARDIOLOGY: chest pain N o. p alpitations N o. l eg edema?No. d izziness Y es. s hortness of breath N o. P ositive for n one. G ASTROENTEROLOGY: dysphagia N o. a bdominal pain N o. n ausea?No. v omiting N o. c onstipation N o. d iarrhea N o. b lood in stool?No. i ndigestion N o. h emorrhoids N o. P ositive for n one. ? U ROLOGY: difficulty urinating N o. b lood in urine N o. f requent urination N o. u rinary incontinence N o. r ecurrent UTI N o. P ositive for n one. D ERMATOLOGY: rash Y es. l umps N o. d ry or sensitive skin?No. h isadora (urticaria) N o. a cne N o. s kin cancer N o. P ositive for p er the HPI and history, otherwise unremakable. N EUROLOGY: headache Y es. t ingling numbness Y es. s eizures N o. i nsomnia N o. m katarzyna loss Y es. d izziness Y es. g ait abnormality N o. P ositive for n one. H EMATOLOGY/LYMPH: Positive for n one. M USCULOSKELETAL: joint swelling N o. j oint pain Y es. l eg cramps N o. j oint stiffness Y es. s ciatica Y es. o steoporosis N o. f racture Y es. c arpal tunnel Y es. g out N o. P ositive for n one. ? P SYCHOLOGY: high stress level Y es. d epression Y es. s leep disturbances N o. s uicidal ideation N o. e ating disorder N o. m ental or physical abuse N o. a nxiety Y es. P ositive for n one. M ADAM REPRODUCTIVE: difficulty with erection Y es. d iminished sexual drive?Yes. p enile discharge N o. i nfertility N o. A ll other review of systems per the HPI and history, otherwise unremarkable. * Medical History: * Surgical History: n elio infusion 2014back surgery 2023 * Hospitalization/Major Diagno stic Procedure: b ack surgery 2023 * Family History: F ather: , Yes. M other: , Yes. P aternal Grand Father: Yes. P aternal Grand Mother: Yes. S iblings: Yes. C hildren: Yes. * Social History: M arital Status What is your marital status? m arried A lcohol Screening Do you ever drink alcoholic beverages? N o S moking Have you ever smoked tobacco: n ever smoked Additional Findings: Tobacco Non-User N ever used moist powdered tobacco Are you a : n ever smoker R ecreational drug use Have you ever used recreational drugs? Y es What kind of drugs? m arijuana D etails on consumption of certain products? Do you regularly consume products with aspartame; Equal or NutraSweet? Y es Do you regularly consume products with artificial coloring??Yes Have you ever noticed worsening of your rash with these food items? N o E xercise What kind(s) of exercise do you perform regularly? w alking How often do you perform this exercise? d aily A re any of the following personal care products containing fragrance, dye or preservatives used regularly? Shampoo: Y es Conditioner: N o Soap: Y es Laundry Detergent: Y es Fabric Softener: Y es Deodorant: Y es Perfume, cologne, after shave: N o Air freshners or other scented products: N o Hair coloring dyes or rinses: N o Other: N o O ccupation Are you currenly employed? N o Have you had any job with high exposure to fumes, chemicals, dust or other noxious substances? N o Are you currently a student? N o E nvironmental History Living environment: p rivate home Where is the home located? c it[place] Age of home: 9 0 How long have you lived there? 5 years or more How many people live in the home? 3 H ome description Basement: Y es Any water damage in basement? Y es Smokers in the home? N o Smokers outside the home? N o Air Conditioning? Y es Central Air? N o Forced air heating? N o Fireplace? N o Wood burning stove? N o Do you vacuum the home? Y es Air purification systems? N o Pillow and mattress dust-proof encasings? N o Do you use a humidifier? Y es Whole house or room? r oom humidifier Does it have a humidistat? Y es Is it used year-round, seasonal, or as needed? a s needed Is the humidifier cleaned regularly? Y es Do you own any pets? N o Fabric softeners used? Y es Plants in the home? Y es How many? 4 Where are they kept? o ther room in home Is there carpeting in your bedroom? N o Do you have [id number] carpeting? N o What is the age of your mattress (years)? 5 What is the age of your pillow (years)? 4 Do you sleep with quilts or blankets or a duvet? Y es T obacco Control (Standard) Tobacco use: N onsmoker * Medications: T akingWixela Inhub 250-50 MCG/ACT Aerosol Powder Breath Activated 1 puff Inhalation Twice a day Montelukast Sodium 10 MG Tablet Take 1 tablet by mouth once daily Fexofenadine HCl 180 MG Tablet 1 tablet Orally Once a day Fluticasone Propionate 50 MCG/ACT Suspension 1 spray in each nostril Nasally Twice a day Azelastine HCl 137 MCG/SPRAY Solution 2 sprays in each nostril Nasally Twice a day Nasal Washes N/A 1 quart of sterilized tap water or distilled water, 1 tsp NaCl, 1 pinch of baking soda as directed intranasally Montelukast Sodium 10 MG Tablet 1 tablet Orally Once a day Metoprolol Tartrate 50 MG Tablet 1 tablet with food Orally Twice a day Losartan Potassium 25 MG Tablet 1 tablet Orally Once a day Citalopram Hydrobromide 20 MG Tablet 1 tablet Orally Once a day Pantoprazole Sodium 40 MG Tablet Delayed Release 1 tablet Orally Once a day Ipratropium [place] 0.06 % Solution 2 sprays in each nostril Nasally Three times a day Fluticasone-Salmeterol 115-21 MCG/ACT Aerosol 2 puffs Inhalation Twice a day AeroChamber MV - Miscellaneous as directed Any adult spacerAlbuterol Sulfate HFA 108 (90 Base) MCG/ACT Aerosol Solution 2 puffs as needed Inhalation every 4 hrs Taking Wixela Inhub 250-50 MCG/ACT Aerosol Powder Breath Activated 1 puff Inhalation Twice a day Taking Montelukast Sodium 10 MG Tablet Take 1 tablet by mouth once daily Taking Fexofenadine HCl 180 MG Tablet 1 tablet Orally Once a day Taking Fluticasone Propionate 50 MCG/ACT Suspension 1 spray in each nostril Nasally Twice a day Taking Azelastine HCl 137 MCG/SPRAY Solution 2 sprays in each nostril Nasally Twice a day Taking Nasal Washes N/A 1 quart of sterilized tap water or distilled water, 1 tsp NaCl, 1 pinch of baking soda as directed intranasally Taking Montelukast Sodium 10 MG Tablet 1 tablet Orally Once a day Taking Metoprolol Tartrate 50 MG Tablet 1 tablet with food Orally Twice a day Taking Losartan Potassium 25 MG Tablet 1 tablet Orally Once a day Taking Citalopram Hydrobromide 20 MG Tablet 1 tablet Orally Once a day Taking Pantoprazole Sodium 40 MG Tablet Delayed Release 1 tablet Orally Once a day Taking Ipratropium [place] 0.06 % Solution 2 sprays in each nostril Nasally Three times a day Taking Fluticasone-Salmeterol 115-21 MCG/ACT Aerosol 2 puffs Inhalation Twice a day Taking AeroChamber MV - Miscellaneous as directed Any adult spacerTaking Albuterol Sulfate HFA 108 (90 Base) MCG/ACT Aerosol Solution 2 puffs as needed Inhalation every 4 hrs * Allergies: N .K.D.A.no[Allergies Verified] Objective: * Vitals: B P:153/54mm Hg, HR:66/min, Pulse Oximetry:96%, ACT:17, Ht: 73 in, Wt: 277.6 lbs, BMI:36.62Index. * Examination: G eneral examination: General appearance: p leasant, well-developed, well-nourished, male, i n no apparent distress, speaking in full sentences. HEENT: c onjunctiva are normal bilaterally, TMs without evidence of acute infection, posterior oropharynx is clear without exudates. Oral cavity: n ormal, no lesions. Breasts : n ot performed. Heart: R RR, S1-S2, no murmurs, no rubs, no gallops. Lungs: c lear to auscultation in all lung mari, no wheezes, no crackles, no rhonchi. Neurologic exam: u nremarkable. Skin: n ormal, no visible rash, dermatographism, urticaria, angioedema. Back: n ormal. Extremities: n ormal ROM, no clubbing, no cyanosis, no edema. Genitalia: n ot performed. Assessment: * Assessment: 1. C hronic cough - R05.3 (Primary) 2 . A llergic rhinitis due to pollen - J30.1 3 . A llergic rhinitis due to animal (cat) (dog) hair and dander - J30.81? 4. O ther allergic rhinitis - J30.89 5 . O ther chronic allergic conjunctivitis - H10.45 6 . E ssential (primary) hypertension - I10 ? Plan: * Treatment: 2. A llergic rhinitis due to pollen Continue Fexofenadine HCl Tablet, 180 MG, 1 tablet, Orally, Once a day, 30 days, 30 Tablet, Refills 1; C ontinue Fluticasone Propionate Suspension, 50 MCG/ACT, 1 spray in each nostril, Nasally, Twice a day, 30 days, 1, Refills 1; C ontinue Azelastine HCl Solution, 137 MCG/SPRAY, 2 sprays in each nostril, Nasally, Twice a day, 30 days, 1, Refills 1; C ontinue Nasal Washes 1 quart of sterilized tap water or distilled water, 1 tsp NaCl, 1 pinch of baking soda, N/A, as directed, intranasally; H old Montelukast Sodium Tablet, 10 MG, 1 tablet, Orally, Once a day, 30 days, 30, Refills 1. Notes: Petros clearly suffers from atopic disease based upon our skin testing and clinical history. Accordingly, we have encouraged his medication regimen, discussed nasal washes and allergy-specific avoidance measures. We also discussed adjunctive therapies including subcutaneous, specific allergen immunotherapy as relates to the treatment and prevention of atopic disease. - Thoroughly discussed the potential systemic side effects caused by glucocorticoid injections(glaucoma, cataracts, osteoporosis, diabetes). Discussed with Petros that regular Kenalog injections for management of ARC is not recommended as first-line therapy. - Petros is not interested in SCIT at this time. He would like to hold LTRA at this time. - Highly consider SCIT. - Follow-up in 2 months as above for interval evaluation and management 3. A llergic rhinitis due to animal (cat) (dog) hair and dander Notes: Follow allergen avoidance, meds and consider SCIT as an adjunctive treatment to current regimen 4. O ther allergic rhinitis Notes: Follow allergen avoidance, meds and consider SCIT as an adjunctive treatment to current regimen 5. O ther chronic allergic conjunctivitis Notes: Given ocular signs and symptoms I encouraged allergy avoidance measures and meds as above. If symptoms persist, consider adding additional medications including intraocular antihistamine/mast cell stabilizer, PRN and consider SCIT as an adjunctive measure 6. E ssential (primary) hypertension Continue Metoprolol Tartrate Tablet, 50 MG, 1 tablet with food, Orally, Twice a day; C ontinue Losartan Potassium Tablet, 25 MG, 1 tablet, Orally, Once a day. Notes: BP elevated today without symptoms of urgency or emergency. Continue serial checks and follow-up with PCP - If Petros pursues SCIT need to discuss holding BB 7. O thers Continue Citalopram Hydrobromide Tablet, 20 MG, 1 tablet, Orally, Once a day; C ontinue Pantoprazole Sodium Tablet Delayed Release, 40 MG, 1 tablet, Orally, Once a day. * Procedure Codes: 9 6160 PT-FOCUSED TH RISK [id number] DOC MEDS VERIFIED W/PT OR [id number] RESPIRATORY FLOW VOLUME LOOP * Preventive Medicine: Counseling: D iet a s tolerated. E xercise C ontinue activity as usual. M edication instruction: W atch for side effects of prescribed medications, Nasal steroid/antihistamine instruction: avoid septum, Reviewed boxed warning on prescribed medication, Singulair (montelukast: serious neuropsychiatric events have been reported in patients; monitor for neuropsychiatric symptoms, [place] teeth or rinse out mouth after the use of oral, inhaled steroids to prevent oral thrush. E ducation: G ENERAL EDUCATION: Our staff spent an additional 30 minutes in direct contact with the patient educating them on their current diagnoses and proper treatment and prevention of symptoms and the proper use of medications. E ducation 2: A RC EDUCATION: Our staff discussed the appropriate allergen avoidance measures and medication utilization including upper airway hygiene with daily nasal washes given the patient's clinical status and diagnoses. SCIT EDUCATION: Discussed allergy immunotherapy including the relative risks, benefits and alternatives to this treatment as an adjunctive measure to current therapy, Allergy Immunotherapy: Risks: bleeding, infection, allergic reaction, anaphylaxis = severe allergic reaction that can cause ; Benefits: reduced need for medications, improved symptoms, disease modification. Alternatives: watch/wait, change medication regimen, improve allergy avoidance measures, Our staff discussed the warning signs of anaphylaxis and the indications to use self-injectable epinephrine and seek urgent or emergent care. P atient education material sent to portal? Y es C are goal follow up plan BMI management provided Y es Above Normal BMI Follow-up D ietary management education, guidance, and counseling B P Management: LIFESTYLE RECOMMENDATION: H ypertension education REFERRAL TO ALTERNATIVE / PRIMARY CARE PROVIDER: Janeth taveras to general practitioner * Follow Up: 1 -2 Months (Reason: Evaluation and Management) * Billing Information: * Visit Code: 36311 Office Visit, Est Pt., Level 4. Modifiers: 25 * Procedure Codes: 33320 PT-FOCUSED HLTH RISK ASSMT. G8427 DOC MEDS VERIFIED W/PT OR RE. A4617 Mouthpiece. 12897 RESPIRATORY FLOW VOLUME LOOP. * ING EDUCATOR Sign off status: Completed true * Provider: Pallavi Krueger DNP FRUIT HARVEST MACHINE OPERATOR-C Date: 0 06/17/2024 Generated for Derrick randle/Stephanie/Esvin on: 0 08/20/2024 01:38 AM CDT History and Physical Notes * HPI (History of Present Illness) Category Sub-Category Detail Notes Category Not es *Introduction I had the pleasure o f seeing Sae Arvizu, a 63-year-old male with past medical history significant for hypertension, GERD and ARC who returns for ARC and cough follow-up. He is alone for today's visit. Petros reports long history of hayfever. He was previously seen by Dr. Browne, ENT, who he states would give him a Kenalog injection 1-2 times each Fall to treat his symptoms. Petros states he has been doing this for forty years. He reports Dr. Browne recently retired, due to this his symptoms have increased. Skin testing was performed last visit to aeroallergens that showed positive results to multiple seasonal and perennial allergens. He is now taking Singulair, Kimber and azelastine with mild benefit. He continues to report drainage and gunk. He presented approximately two months ago with new onset cough. Petros denies clear triggers, does not recall being sick. With that said, he admits to being a poor historian stating I don't know, maybe I have always coughed. He describes the cough as productive. He denies shortness of breath or wheezing. No history of hospitalizations due to lower airway symptoms. He denies smoking history. Started trial of ipratropium bromide, which last visit he reported has been mildly beneficial. We ordered a chest X-RAY that returned normal. Cough was still occurring daily, due to this we started ICS/LABA. Petros returns today, stating he does not feel this has been beneficial. He is still coughing throughout the day. He admits to history of GERD, takes pantoprazole daily which he has been on forever. Today, he reports no fevers, chills, night sweats or other constitutional symptoms Examination Category Sub-Category Detail Notes Category Not es General examination HEENT: conjunctiva are normal bilaterally, TMs without evidence of acute infection, posterior oropharynx is clear without exudates Heart: RRR, S1-S2, no murmu rs, no rubs, no gallops Lungs: clear to auscultatio n in all lung mari, no wheezes, no crackles, no rhonchi Extremities: normal ROM, no clubb ing, no cyanosis, no edema General appearance: pleasant, well-devel oped, well-nourished, male, in no apparent distress, speaking in full sentences Skin: normal, no visible r kelsy, dermatographism, urticaria, angioedema Neurologic exam: unremarkable Oral cavity: normal, no lesions Breasts : not performed Back: normal Genitalia: not performed
--- OUTSIDE RECORDS SUMMARY | 2024-08-20 01:38 | XMS_ITS ---
Author Organization [facility] Address [address] [place] [id number] Care Team Providers Care Cloud Security Architect Name Role Phone Jim Whalen MD Primary Care Provider Suki Chappell [phone] REASON FOR VISIT Refill Medications Medication SIG (Take, Route, Frequency, Duration) Notes Start Date End Date Status Albuterol Sulfate HFA 108 (90 Base) MCG/ACT 2 puffs as needed Inhalation every 4 hrs for 30 days Active Encounters Encounter Location Date Provider Diagnosis [facility] [address] [place] [phone] 05/30/2024 Suki Krueger Chronic cough R05.3 Assessments Encounter Date Diagnosis (ICD Code) Assessment Notes Treatment Notes Treatment Clinical Notes Section Notes 05/30/2024 Chronic cough (ICD-10 - R05.3) Plan Of Treatment Medication Medication Name Sig Start Date Stop Date Notes Albuterol Sulfate HFA 108 (9 0 Base) MCG/ACT 2 puffs as needed Inhalation every 4 hrs for 30 days Next Appt Details Provider Name:Suki haas, 09/16/2024 10:30:00 AM, [address] [employer], [address] [facility], [place], [address], Progress Notes * Sae ARVIZUDOB:1960 ([age] yo M)Acc No.[id number]:05/30/2024 Patient: Sae VILLARREAL :1960 A ge:63 Y S ex:Male Address:[address], [place], [address] * Refills Refill Albuterol Sulfate HFA Aerosol Solution, 108 (90 Base) MCG/ACT, Inhalation, 1, 2 puffs as needed, every 4 hrs, 30 days, Refills=0 * true * Date: Generated for Derrick randle/Stephanie/Hubertitting on: 0 08/20/2024 01:38 AM CDT
--- OUTSIDE RECORDS SUMMARY | 2024-08-20 01:38 | XMS_ITS ---
Author Organization [facility] Address [address] [place] [id number] Care Team Providers Care Master Carpenter Name Role Phone Jim Whalen MD Primary Care Provider Suki Chappell Unavailable [phone] REASON FOR VISIT New reports of daily cough ongoing the past 3-4 weeks. No history of inhaler use or hospitalizations. Chest X-RAY ordered that returned normal. Trialed ipratropium bromide with mild noted benefit, cough still occurring daily, however., ARC follow-up: Typically gets 1-2 Kenalog injections each Fall. Continues to follow avoidance measures and medication regimen. Medications Medication SIG (Take, Route, Frequency, Duration) Notes Start Date End Date Status Albuterol Sulfate HFA 108 (90 Base) MCG/ACT 2 puffs as needed Inhalation every 4 hrs for 30 days Active Citalopram Hydrobromide 20 MG 1 tablet Orally Once a day A ctive Pantoprazole Sodium 40 MG 1 tablet Orally Once a day Active Wixela Inhub 250-50 MCG/ACT 1 puff Inhalation Twice a day for 30 days 04/15/2024 Active Ipratropium [place] 0.06 % 2 sprays in e ach nostril Nasally Three times a day for 30 days Active Montelukast Sodium 10 MG 1 tablet Orally Once a day for 30 days Active Metoprolol Tartrate 50 MG 1 tablet with food Orally Twice a day Active Nasal Washes N/A as directed intranasally Active Azelastine HCl 137 MCG/SPRAY 2 sprays in each nostril Nasally Twice a day for 30 days Active Losartan Potassium 25 MG 1 tablet Orally Once a day Active Montelukast Sodium 10 MG Take 1 tablet b y mouth once daily for 30 Active Fexofenadine HCl 180 MG 1 tablet Orally Once a day for 30 days Active Fluticasone-Salmeterol 115-21 MCG/ACT 2 puffs Inhalation Twice a day for 30 days Active Fluticasone Propionate 50 MCG/ACT 1 spray in each nostril Nasally Twice a day for 30 days Active AeroChamber MV - as directed for 30 days Any adult spacer Active Encounters Encounter Location Date Provider Diagnosis [facility] [address] [facility] [address] [place] [address] 05/28/2024 Suki Krueger Allergic rhinitis du e to pollen J30.1 ; Chronic cough R05.3 ; Allergic rhinitis due to animal (cat) (dog) hair and dander J30.81 ; Other allergic rhinitis J30.89 ; Other chronic allergic conjunctivitis H10.45 and Essential (primary) hypertension I10 Assessments Encounter Date Diagnosis (ICD Code) Assessment Notes Treatment Notes Treatment Clinical Notes Section Notes 05/28/2024 Allergic rhinitis due to pollen (ICD-10 - [...] not interested in SCIT at this time. Continue LTRA at this time. - Follow-up in 1 month as above for interval evaluation and management 05/28/2024 Chronic cough (ICD-10 - R05.3) Petros presented 4 weeks ago with new complaints of daily cough ongoing for 3-4 weeks. He denies shortness of breath or wheezing. He denies clear trigger, does not recall being sick. He describes the cough as productive. No history of inhaler use or hospitalizations due to lower airway symptoms. - Spirometry obtained today that showed reduced FVC, however TLC not measured, normal FEV1 and FEV%. - Attempted spirometry last visit, however Petros was unable to complete the test due to coughing. Performed nebulized albuterol treatment to assess for perceived benefit. Petros did not find this beneficial, was still unable to perform spirometry s/p MIKHAIL. - Lungs were clear to auscultation in all lungs field on PE. - Considerations for cough include atopic disease vs RAD vs post-infectious cough vs other. Last visit ordered chest X-RAY for further evaluation, which returned unremarkable. - Continue ipratropium bromide nasal spray. Will also start trial of an ICS/LABA with AeroChamber. Proper demonstration provided today. He is aware to rinse his mouth after use. - If symptoms persist consider consult with pulmonology. We discussed this again today. - Follow-up in 4 weeks for further evaluation and management 05/28/2024 Allergic rhinitis due to animal (cat) (dog) hair and dander (ICD-10 - J30.81) Follow allergen avoidance, meds and consider SCIT as an adjunctive treatment to current regimen 05/28/2024 Other allergic rhinitis (ICD-10 - J30.89) Follow allergen avoidance, meds and consider SCIT as an adjunctive treatment to current regimen 05/28/2024 Other chronic allergic conjunctivitis (ICD-10 - H10.45) Given ocular signs and symptoms I encouraged allergy avoidance measures and meds as above. If symptoms persist, consider adding additional medications including intraocular antihistamine/mast cell stabilizer, PRN and consider SCIT as an adjunctive measure 05/28/2024 Essential (primary) hypertension (ICD-10 - I10) BP elevated today without symptoms of urgency or emergency. Continue serial checks and follow-up with PCP - If Petros pursues SCIT need to discuss holding BB Plan Of Treatment Medication Medication Name Sig Start Date Stop Date Notes Albuterol Sulfate HFA 108 (9 0 Base) MCG/ACT 2 puffs as needed Inhalation every 4 hrs for 30 days Citalopram Hydrobromide 20 MG 1 tablet Orally Once a day Pantoprazole Sodium 40 MG 1 tablet Orally Once a day Ipratropium [place] 0.06 % 2 sprays in e ach nostril Nasally Three times a day for 30 days Montelukast Sodium 10 MG 1 tablet Orally Once a day for 30 days Metoprolol Tartrate 50 MG 1 tablet with food Orally Twice a day Nasal Washes N/A as directed intranasally Azelastine HCl 137 MCG/SPRAY 2 sprays in each nostril Nasally Twice a day for 30 days Losartan Potassium 25 MG 1 tablet Orally Once a day Fexofenadine HCl 180 MG 1 tablet Orally Once a day for 30 days Fluticasone-Salmeterol 115-2 1 MCG/ACT 2 puffs Inhalation Twice a day for 30 days Fluticasone Propionate 50 MCG/ACT 1 spray in each nostril Nasally Twice a day for 30 days AeroChamber MV - as directed for 30 days Treatment Notes Assessment Notes Allergic rhinitis due [...] not interested in SCIT at this time. Continue LTRA at this time. - Follow-up in 1 month as above for interval evaluation and management Chronic cough Petros presented 4 weeks ago with new complaints of daily cough ongoing for 3-4 weeks. He denies shortness of breath or wheezing. He denies clear trigger, does not recall being sick. He describes the cough as productive. No history of inhaler use or hospitalizations due to lower airway symptoms. - Spirometry obtained today that showed reduced FVC, however TLC not measured, normal FEV1 and FEV%. - Attempted spirometry last visit, however Petros was unable to complete the test due to coughing. Performed nebulized albuterol treatment to assess for perceived benefit. Petros did not find this beneficial, was still unable to perform spirometry s/p MIKHAIL. - Lungs were clear to auscultation in all lungs field on PE. - Considerations for cough include atopic disease vs RAD vs post-infectious cough vs other. Last visit ordered chest X-RAY for further evaluation, which returned unremarkable. - Continue ipratropium bromide nasal spray. Will also start trial of an ICS/LABA with AeroChamber. Proper demonstration provided today. He is aware to rinse his mouth after use. - If symptoms persist consider consult with pulmonology. We discussed this again today. - Follow-up in 4 weeks for further evaluation and management Allergic rhinitis [...] pursues SCIT need to discuss holding BB Next Appt Details Follow Up: 4 Weeks, Reason: Evaluation and Management, Spirometry Provider Name:Suki haas, 09/16/2024 10:30:00 AM, [address] [employer], [address] [place] [address], [phone], Progress Notes * Sae ARVIZUDOB:1960 ([age] yo M)Acc No.[id number]:05/28/2024 Progress Notes Patient: Sae VILLARREAL Provider: Pallavi Krueger DNP SENIOR BUSINESS CONSULTANT-C :1960 A ge:63 Y S ex:Male Date:05/28/2024 Address:[address] [place], [place] [phone] Pcp:Jim Whalen MD Subjective: * Chief Complaints: * 1 . New reports of daily cough ongoing the past 3-4 weeks. No history of inhaler use or hospitalizations. Chest X-RAY ordered that returned normal. Trialed ipratropium bromide with mild noted benefit, cough still occurring daily, however.. 2. ARC follow-up: Typically gets 1-2 Kenalog injections each Fall. Continues to follow avoidance measures and medication regimen.. * HPI: * Introduction: I had the [...] now taking Singulair, Kimber and azelastine with benefit. He feels these interventions have been beneficial, however 4 weeks ago he presented with new onset cough that had been ongoing for approximately 3-4 weeks. Petros denies clear triggers, does not recall being sick. He describes the cough as productive. He denies shortness of breath or wheezing. He has never been prescribed an inhaler, no history of hospitalizations due to lower airway symptoms. He denies smoking history. Started trial of ipratropium bromide, which he feels has been midly beneficial. We ordered a chest X-RAY that returned normal. He reports cough is still occurring multiple times throughout the day. Today, he reports no fevers, chills, night [...] history, otherwise unremarkable. * Medical History: * Medications: Arturo Lozanoxela Inhub 250-50 MCG/ACT Aerosol Powder Breath Activated 1 puff Inhalation Twice a day , Taking Fexofenadine HCl 180 MG Tablet 1 tablet Orally Once a day , Taking Fluticasone Propionate 50 MCG/ACT Suspension 1 spray in each nostril Nasally Twice a day , Taking Azelastine HCl 137 MCG/SPRAY Solution 2 sprays in each nostril Nasally Twice a day , Taking Nasal Washes N/A 1 quart of sterilized tap water or distilled water, 1 tsp NaCl, 1 pinch of baking soda as directed intranasally , Taking Metoprolol Tartrate 50 MG Tablet 1 tablet with food Orally Twice a day , Taking Losartan Potassium 25 MG Tablet 1 tablet Orally Once a day , Taking Citalopram Hydrobromide 20 MG Tablet 1 tablet Orally Once a day , Taking Pantoprazole Sodium 40 MG Tablet Delayed Release 1 tablet Orally Once a day , Taking Ipratropium [place] 0.06 % Solution 2 sprays in each nostril Nasally Three times a day , Taking Albuterol Sulfate HFA 108 (90 Base) MCG/ACT Aerosol Solution 2 puffs as needed Inhalation every 4 hrs , Taking Fluticasone-Salmeterol 115-21 MCG/ACT Aerosol 2 puffs Inhalation Twice a day , Taking AeroChamber MV - Miscellaneous as directed Any adult spacer, Taking Montelukast Sodium 10 MG Tablet Take 1 tablet by mouth once daily Objective: * Vitals: * Examination: G eneral examination: General appearance: p leasant, well-developed, well-nourished, male, i n no apparent distress, speaking in full sentences. HEENT: c onjunctiva are normal bilaterally. Oral cavity: n ormal, no lesions. Breasts [...] of baking soda, N/A, as directed, intranasally; C ontinue Montelukast Sodium Tablet, 10 MG, 1 tablet, [...] not interested in SCIT at this time. Continue LTRA at this time. - Follow-up in 1 month as above for interval evaluation and management [...] Orally, Once a day. * Procedure Codes: G 8427 DOC MEDS VERIFIED W/PT OR RE, A4617 Mouthpiece, 33792 RESPIRATORY FLOW VOLUME LOOP, 44459 NEB/MDI DEMO, Modifiers: 59 * Preventive Medicine: Counseling: D iet a s tolerated. E xercise C ontinue activity as usual. M edication instruction: W atch for side effects of prescribed medications, Nasal steroid/antihistamine instruction: avoid septum, Reviewed boxed warning on prescribed medication, Singulair (montelukast: serious neuropsychiatric events have been reported in patients; monitor for neuropsychiatric symptoms, [place] teeth or rinse out mouth after the [...] taveras to general practitioner * Follow Up: 4 Weeks (Reason: Evaluation and Management, Spirometry) * Billing Information: * Visit Code: 99674 Office Visit, Est Pt., Level 4. Modifiers: 25 * Procedure Codes: G8427 DOC MEDS VERIFIED W/PT OR RE. A4617 Mouthpiece. 60436 RESPIRATORY FLOW VOLUME LOOP. 68971 NEB/MDI DEMO. Modifiers: 59 * Electronic signature of Suki Krueger DNP, FNP-C on 08/20/2024 at 01:38 AM CDT Sign off status: Pending * Provider: JUAREZ Yeboah Date: 0 05/28/2024 Generated for Derrick randle/Stephanie/eTransmkali on: 0 08/20/2024 01:38 AM CDT History [...] now taking Singulair, Kimber and azelastine with benefit. He feels these interventions have been beneficial, however 4 weeks ago he presented with new onset cough that had been ongoing for approximately 3-4 weeks. Petros denies clear triggers, does not recall being sick. He describes the cough as productive. He denies shortness of breath or wheezing. He has never been prescribed an inhaler, no history of hospitalizations due to lower airway symptoms. He denies smoking history. Started trial of ipratropium bromide, which he feels has been midly beneficial. We ordered a chest X-RAY that returned normal. He reports cough is still occurring multiple times throughout the day. Today, he reports no fevers, chills, night sweats or other constitutional symptoms Examination Category Sub-Category Detail Notes Category Not es General examination HEENT: conjunctiva are larry l bilaterally Heart: RRR, S1-S2, no murmu rs, no [...]
--- OUTSIDE RECORDS SUMMARY | 2024-08-20 01:38 | XMS_ITS | Patient Health Record ---
Author Organization [facility] Address [address] [place] [id number] Care Team Providers Care House Parent Name Role Phone Jim Whalen MD Primary Care Provider Suki Chappell Unavailable [phone] Allergies No Known Allergies Results Component Value Reference Range Notes Spirometry Reviewed date:03/07/2024 12:40:46 PM Interpretation:Interpretation Performing Lab: Notes/Report: Interpretation SpiroPreBronchodilator_FVC 3.3 SpiroPostBronchodilator_FEF25_75 1.75 SpiroPreBronchodilator_FEF25_75 0 SpiroPreBronchodilator_FEV1 3.22 SpiroPrecentPredictionPost_FEF25_75 48.6 SpiroPrecentPredictionPost_FEV1 55.5 SpiroPrecentPredictionPost_FEV1_OVER_FVC 96.5 SpiroPrecentPredictionPost_FVC 57.6 SpiroPrecentPredictionPre_FEF25_75 0 SpiroPrecentPredictionPre_FEV1 80.5 SpiroPrecentPredictionPre_FEV1_OVER_FVC 126.3 SpiroPrecentPredictionPre_FVC 63.8 SpiroPredicted_FEF25_75 3.6 SpiroPreBronchodilator_FEV1_OVER_FVC 97.39 SpiroPreBronchodilator_PEF 8.83 SpiroPostBronchodilator_FVC 2.98 SpiroPostBronchodilator_FEV1 2.22 SpiroPostBronchodilator_FEV1_OVER_FVC 74.43 SpiroPostBronchodilator_PEF 4.31 SpiroPredicted_FVC 5.17 SpiroPredicted_FEV1 4 SpiroPredicted_FEV1_OVER_FVC 77.11 SpiroPredicted_PEF 9.3 Spirometry Reviewed date:04/18/2024 10:43:06 AM Interpretation:Abnormal Performing Lab: Notes/Report: Abnormal SpiroPreBronchodilator_FVC 4.04 SpiroPostBronchodilator_FEF25_75 0 SpiroPreBronchodilator_FEF25_75 2.65 SpiroPreBronchodilator_FEV1 3.09 SpiroPrecentPredictionPost_FEF25_75 0 SpiroPrecentPredictionPost_FEV1 0 SpiroPrecentPredictionPost_FEV1_OVER_FVC 0 SpiroPrecentPredictionPost_FVC 0 SpiroPrecentPredictionPre_FEF25_75 73.6 SpiroPrecentPredictionPre_FEV1 77.2 SpiroPrecentPredictionPre_FEV1_OVER_FVC 99.2 SpiroPrecentPredictionPre_FVC 78.1 SpiroPredicted_FEF25_75 3.6 SpiroPreBronchodilator_FEV1_OVER_FVC 76.52 SpiroPreBronchodilator_PEF 6.19 SpiroPostBronchodilator_FVC 0 SpiroPostBronchodilator_FEV1 0 SpiroPostBronchodilator_FEV1_OVER_FVC 0 SpiroPostBronchodilator_PEF 0 SpiroPredicted_FVC 5.17 SpiroPredicted_FEV1 4 SpiroPredicted_FEV1_OVER_FVC 77.11 SpiroPredicted_PEF 9.3 Reason For Referral No Information Medications Medication SIG (Take, Route, Frequency, Duration) Notes Start Date End Date Status AeroChamber MV - as directed for 30 days Any adult spacer Active Montelukast Sodium 10 MG 1 tablet Orally Once a day for 30 days Active Metoprolol Tartrate 50 MG 1 tablet with food Orally Twice a day Active Wixela Inhub 250-50 MCG/ACT 1 puff Inhalation Twice a day for 30 days 04/15/2024 Active Azelastine HCl 137 MCG/SPRAY 2 sprays in each nostril Nasally Twice a day for 30 days Active Nasal Washes N/A as directed intranasally Active Pantoprazole Sodium 40 MG 1 tablet Orally Once a day Active Ipratropium [place] 0.06 % 2 sprays in e ach nostril Nasally Three times a day for 30 days Active Losartan Potassium 25 MG 1 tablet Orally Once a day Active Montelukast Sodium 10 MG Take 1 tablet b y mouth once daily for 30 Active Citalopram Hydrobromide 20 MG 1 tablet Orally Once a day A ctive Fluticasone Propionate 50 MCG/ACT 1 spray in each nostril Nasally Twice a day for 30 days Active Albuterol Sulfate HFA 108 (90 Base) MCG/ACT 2 puffs as needed Inhalation every 4 hrs for 30 days Active Fexofenadine HCl 180 MG 1 tablet Orally Once a day for 30 days Active Fluticasone-Salmeterol 115-21 MCG/ACT 2 puffs Inhalation Twice a day for 30 days Active Social History Tobacco Use: Social History Observation Description Date Details (start date - stop date) Never Smoker NA - NA Tobacco Control (Standard) Question Answer Notes Tobacco use: Nonsmoker Problems Problem Type SNOMED Code ICD Code Onset Dates Problem Status W/U Status Risk Notes Problem Chronic allergic conjunctivitis (24913257) Other chronic allergic conjunctivitis (H10.45) Active confirmed Problem Essential hypertension (42165261) Essential (primary) hypertension (I10) Active confirmed Problem Allergic rhinitis caused by pollen (disorder) (94332825) Allergic rhinitis due to pollen (J30.1) Active confirmed Problem Allergic rhinitis (19115562) Other allergic rhinitis (J30.89) Active confirmed Problem Allergic rhinitis caused by animal hair and dander (553552932597430) Allergic rhinitis due to animal (cat) (dog) hair and dander (J30.81) Active confirmed Problem Chronic cough (36641574) Chronic cough (R05.3) Active confirmed Vital Signs Oximetry 96 % 06/17/2024 Blood pressure diastolic 54 mm Hg 06/17/2024 Height 73 in 06/17/2024 Blood pressure systolic 153 mm Hg 06/17/2024 Weight 277.6 lbs 06/17/2024 BMI 36.62 kg/m2 06/17/2024 Encounters Encounter Location Date Provider Diagnosis [facility] [address] [facility] [address] [place] [address] 01/09/2024 Suki Krueger Allergic rhinitis du e to pollen J30.1 ; Allergic rhinitis due to animal (cat) (dog) hair and dander J30.81 ; Other allergic rhinitis J30.89 ; Other chronic allergic conjunctivitis H10.45 and Essential (primary) hypertension I10 [facility] [address] [place] [address] [facility] [address] [address] 02/20/2024 Suki Krueger [facility] [address] [place] [phone] 03/05/2024 Suki Krueger Allergic rhinitis du e to pollen J30.1 ; Chronic cough R05.3 ; Allergic rhinitis due to animal (cat) (dog) hair and dander J30.81 ; Other allergic rhinitis J30.89 ; Other chronic allergic conjunctivitis H10.45 and Essential (primary) hypertension I10 [facility] [address] [place], [place] [address] [address] [address] 04/09/2024 Suki Krueger Allergic rhinitis du e to pollen J30.1 ; Chronic cough R05.3 ; Allergic rhinitis due to animal (cat) (dog) hair and dander J30.81 ; Other allergic rhinitis J30.89 ; Other chronic allergic conjunctivitis H10.45 and Essential (primary) hypertension I10 [facility] [address] [address] 06/17/2024 Suki Krueger Allergic rhinitis du e to pollen J30.1 ; Chronic cough R05.3 ; Allergic rhinitis due to animal (cat) (dog) hair and dander J30.81 ; Other allergic rhinitis J30.89 ; Other chronic allergic conjunctivitis H10.45 and Essential (primary) hypertension I10 [facility] [place] [address] [place] [address] 05/11/2024 Suki LLANOS - [place] [address] [place] [address] 05/27/2024 Suki LLANOS - [place] [address] [place] [address] 02/26/2024 Suki LLANOS - [place] [address] [place] [address] 03/06/2024 Suki LLANOS - [place] [address] [place] [address] 04/04/2024 Suki LLANOS - [facility] [address] [address] 04/15/2024 Suki Krueger Chronic cough R05.3 [facility] [address] [place] [address] 04/18/2024 Suki Krueger [facility] [address] [place] [phone] 05/22/2024 Suki Krueger [facility] [address] [place] [address] 05/30/2024 Suki Krueger Chronic cough R05.3 Assessments Encounter Date Diagnosis (ICD Code) Assessment Notes Treatment Notes Treatment Clinical Notes Section Notes 01/09/2024 Allergic rhinitis due to pollen (ICD-10 - J30.1) Given the history and symptoms, skin testing was performed to common aeroallergens to determine atopic status. Petros clearly suffers from atopic disease based upon our skin testing and clinical history. Accordingly, we have introduced a new, aggressive medication regimen, discussed nasal washes and allergy-specific avoidance measures. We also discussed adjunctive therapies including subcutaneous, specific allergen immunotherapy as relates to the treatment and prevention of atopic disease. He is currently considering the risks, benefits and alternatives to this care. Risks: bleeding, infection, allergic reaction, anaphylaxis; Benefits: reduced need for medications, improved symptoms, disease modification. Alternatives: watch/wait, change medication regimen, improve allergy avoidance measures. - Thoroughly discussed the potential systemic side effects caused by glucocorticoid injections (glaucoma, cataracts, osteoporosis, diabetes). Discussed with Petros that regular Kenalog injections for management of ARC is not recommended as first-line therapy. - Petros is not interested in SCIT at this time. Will trial ANGELICA SHER discussed. - Follow-up in 1 month for interval evaluation and management 01/09/2024 Allergic rhinitis due to animal (cat) (dog) hair and dander (ICD-10 - J30.81) Follow allergen avoidance, meds and consider SCIT as an adjunctive treatment to current regimen 03/05/2024 Allergic rhinitis due to pollen (ICD-10 - [...] as above for interval evaluation and management 03/05/2024 Chronic cough (ICD-10 - R05.3) Petros presents with new complaints of daily cough ongoing for the past 3-4 weeks. He denies shortness of breath or wheezing. He denies clear trigger, does not recall being sick. He describes the cough as productive. No history of inhaler use or hospitalizations due to lower airway symptoms. - Attempted spirometry, however Petros was unable to complete the test due to coughing. Performed nebulized albuterol treatment to assess for perceived benefit. Petros did not find this beneficial, was still unable to perform spirometry s/p MIKHAIL. - Lungs were clear to auscultation in all lungs field on PE. - Considerations for cough include atopic disease vs RAD vs post-infectious cough vs other. Will order chest X-RAY for further evaluation. - Will start trial of ipratropium bromide nasal spray. Consider trial of an ICS or ICS/LABA if symptoms persist. - If symptoms persist consider consult with pulmonology. - Follow-up in 4 weeks for further evaluation and management 04/09/2024 Allergic rhinitis due to pollen (ICD-10 - [...] as above for interval evaluation and management 04/09/2024 Chronic cough (ICD-10 - R05.3) Petros presented [...] 4 weeks for further evaluation and management 04/15/2024 Chronic cough (ICD-10 - R05.3) 05/30/2024 Chronic cough (ICD-10 - R05.3) 06/17/2024 Allergic rhinitis due to pollen (ICD-10 [...] albuterol treatment to assess for perceived benefit. Pteros did not find this beneficial, was still [...] as an adjunctive treatment to current regimen 03/05/2024 Allergic rhinitis due to animal (cat) (dog) hair and dander (ICD-10 - J30.81) Follow allergen avoidance, meds and consider SCIT as an adjunctive treatment to current regimen 04/09/2024 Allergic rhinitis due to animal (cat) (dog) hair and dander (ICD-10 - J30.81) Follow allergen avoidance, meds and consider SCIT as an adjunctive treatment to current regimen 01/09/2024 Other allergic rhinitis (ICD-10 - J30.89) Follow allergen avoidance, meds and consider SCIT as an adjunctive treatment to current regimen 01/09/2024 Other chronic allergic conjunctivitis (ICD-10 - H10.45) Given ocular signs and symptoms I encouraged allergy avoidance measures and meds as above. If symptoms persist, consider adding additional medications including intraocular antihistamine/mast cell stabilizer, PRN and consider SCIT as an adjunctive measure 03/05/2024 Other allergic rhinitis (ICD-10 - J30.89) Follow allergen avoidance, meds and consider SCIT as an adjunctive treatment to current regimen 04/09/2024 Other allergic rhinitis (ICD-10 - J30.89) Follow [...] and consider SCIT as an adjunctive measure 04/09/2024 Other chronic allergic conjunctivitis (ICD-10 - H10.45) Given ocular signs and symptoms I encouraged allergy avoidance measures and meds as above. If symptoms persist, consider adding additional medications including intraocular antihistamine/mast cell stabilizer, PRN and consider SCIT as an adjunctive measure 03/05/2024 Other chronic allergic conjunctivitis (ICD-10 - H10.45) Given ocular signs and symptoms I encouraged allergy avoidance measures and meds as above. If symptoms persist, consider adding additional medications including intraocular antihistamine/mast cell stabilizer, PRN and consider SCIT as an adjunctive measure 01/09/2024 Essential (primary) hypertension (ICD-10 - I10) BP elevated today without symptoms of urgency or emergency. Continue serial checks and follow-up with PCP - If Petros pursues SCIT need to discuss holding BB 03/05/2024 Essential (primary) hypertension (ICD-10 - I10) BP elevated today without symptoms of urgency or emergency. Continue serial checks and follow-up with PCP - If Petros pursues SCIT need to discuss holding BB 04/09/2024 Essential (primary) hypertension (ICD-10 - I10) BP elevated today without symptoms of urgency or emergency. Continue serial checks and follow-up with PCP - If Petros pursues SCIT need to discuss holding BB 06/17/2024 Essential (primary) hypertension (ICD-10 - I10) BP elevated today without symptoms of urgency or emergency. Continue serial checks and follow-up with PCP - If Petros pursues SCIT need to discuss holding BB Plan Of Treatment Pending Test Test Name Order Date X ray : Chest 03/05/2024 Spirometry 06/17/2024 Next Appt Details Provider Name:Suki haas, 09/16/2024 10:30:00 AM, [address] [facility], [address], [place], [address], Insurance Providers Payer Name Payer Address Payer Phone Subscriber Number Group Number Insured Name Patient Relationship to Insured Coverage Start Date Coverage End Date [employer] [address] [place] [address] [id number] Sae Arvizu Self - patient is the insured 4 Medical (General) History Medical History History ICD Code high blood pressure Surgical History Surgery Date(Month/Year) neck infusion 2014 back surgery 2023 Hospitalization History Reason Date(Month/Year) back surgery 2023
[2024-08-20 14:08] VITALS: BP 142/94; PULSE 66; RESP 16; TEMP 36.4; O2SAT 99
[2024-08-20] MEDS: LACTATED RINGERS 1,000 ML 150 ML IV CONT (14:23)
--- NOTE | 2024-08-20 14:37 | PM.HPGS ---
History of Present Illness History of Present Illness Consent: Risks, benefits, and alternatives have been discussed and questions answered. Patient agrees to proceed with procedure. Chief complaint: Gastro-esophageal reflux disease without esophagit Narrative: Sae Arvizu is a 63 year old male with cough, he has seen pulmonary because NAYELI. GERD but well controlled with pantoprazole. Review of Systems Review of Systems: All systems reviewed & are unremarkable except as noted in HPI and below PMFSH Past Medical History Medical History (Updated 08/20/24 @ 14:38 by Hernando Powell MD) GERD (gastroesophageal reflux disease) Cough Obstructive sleep apnea Polyp, colonic Lumbar spondylosis severe Allergic rhinitis Depression HTN (hypertension), benign Surgical History Surgical History H/O laminectomy L1-4 History of cervical spinal surgery Family History Family History Father Family history of diabetes mellitus in first degree relative Family history of renal failure Mother Patient's mother is in good health Sibling Patient's sister is in good health Other Hypertension Social History Social History Social History: Caffeine-soda Smoking status: Never smoker Second hand tobacco smoke exposure: No Alcohol intake: never Substance use: never Substance use type: does not use Do You Feel Safe in your Home?: Yes Lack of Transportation: No Lack of Food: Never True Current Housing: I Have Housing Concerned About Future Housing: No Difficulty Paying Gas/Electric Bills: No Difficulty Paying for Meds: No Currently Unemployed: No Education: High School Diploma/GED Difficulty w/ Childcare or Family Care: No Living arrangements: with family Occupation/Education: retired Gender identity (if verbalized by the patient): Male Sexual Orientation (if Verbalized by the Patient): Straight or Heterosexual Spiritual care concerns: No Meds Home Medications and Allergies Home Medications ?Medication ?Instructions ?Recorded ?Confirmed ?Type allopurinol 100 mg tablet See Rx Instructions .Route 09/07/23 08/20/24 Rx .COMPLEX #90 tabs losartan 25 mg tablet 25 mg PO BID #180 tabs 05/03/24 08/20/24 Rx citalopram 20 mg tablet 30 mg (1.5 x 20 mg) PO DAILY #135 05/21/24 08/20/24 Rx tabs pantoprazole 40 mg tablet,delayed 40 mg PO QAM #90 tabs 05/27/24 08/20/24 Rx release ibuprofen 400 mg tablet (IBU) 400 mg PO BID 08/16/24 08/20/24 History metoprolol tartrate 25 mg tablet 25 mg PO DAILY 08/20/24 08/20/24 History Allergies Allergy/AdvReac Type Severity Reaction Status Date / Time Penicillins Allergy Unknown unk Verified 08/20/24 14:01 Vital Signs Vital Signs - 24 hr 08/20/24 14:08 Temperature 97.5 F L Pulse Rate 66 Respiratory Rate 16 Blood Pressure 142/94 H Pulse Oximetry 99 Oxygen Delivery Room Air Exam Const: General: comfortable and no acute distress HENMT: Face/Nose/Sinus: Normal nares present Eyes: General: appearance normal, both eyes and all related structures Neck: Neck: no JVD Resp: Auscultation: clear to auscultation bilaterally Cardio: Rate: regular rate Rhythm: regular rhythm GI: Inspection: non-distended GI Palp: Yes Soft to palpation Skin: General skin exam: normal color Neuro: General: gait normal Speech: normal speech Extrem: General: normal to inspection Psych: Mental Status: mental status grossly normal Assessment and Plan Assessment and plan (1) Cough: Code(s): R05.9 - Cough, unspecified Status: Acute Assessment and Plan: egd with bx (2) GERD (gastroesophageal reflux disease): Code(s): K21.9 - Gastro-esophageal reflux disease without esophagitis Status: Acute
--- NOTE | 2024-08-20 14:38 | P.PNAN_ITS ---
Anes - Initial Pre Proc Eval Procedure: Operation Date: 08/20/24 14:30 Proposed Procedures p Esophagogastroduodenoscopy EGD - Hernando Powell MD Date/Time: 08/20/24 14:38 Surgeon: Hernando Powell MD Pre Op Diagnosis: Gastro-esophageal reflux disease without esophagit Patient Data Age: 63 Gender: M Height: 1.85 m Weight: 125.2 kg Last Vital Signs Temp 36.4 C L 08/20/24 14:08 Pulse 66 08/20/24 14:08 Resp 16 08/20/24 14:08 BP 142/94 H 08/20/24 14:08 Pulse Ox 99 08/20/24 14:08 O2 Del Method Room Air 08/20/24 14:08 Allergies Allergy/AdvReac Type Severity Reaction Status Date / Time Penicillins Allergy Unknown unk Verified 08/20/24 14:01 Home Medications ?Medication ?Instructions ?Recorded ?Confirmed ?Type allopurinol 100 mg tablet See Rx Instructions .Route 09/07/23 08/20/24 Rx .COMPLEX #90 tabs losartan 25 mg tablet 25 mg PO BID #180 tabs 05/03/24 08/20/24 Rx citalopram 20 mg tablet 30 mg (1.5 x 20 mg) PO DAILY #135 05/21/24 08/20/24 Rx tabs pantoprazole 40 mg tablet,delayed 40 mg PO QAM #90 tabs 05/27/24 08/20/24 Rx release ibuprofen 400 mg tablet (IBU) 400 mg PO BID 08/16/24 08/20/24 History metoprolol tartrate 25 mg tablet 25 mg PO DAILY 08/20/24 08/20/24 History Patient hx anesthesia problems: none Family hx anesthesia problems: none Results Review: All pre-operative results and documents have been reviewed as part of the pre- operative evaluation. [facility] Past Medical History Medical History Obstructive sleep apnea Polyp, colonic Lumbar spondylosis severe Allergic rhinitis Depression HTN (hypertension), benign Surgical History Surgical History H/O laminectomy L1-4 History of cervical spinal surgery Family History Family History Father Family history of diabetes mellitus in first degree relative Family history of renal failure Mother Patient's mother is in good health Sibling Patient's sister is in good health Other Hypertension Social History Social History Social History: Caffeine-soda Smoking status: Never smoker Second hand tobacco smoke exposure: No Alcohol intake: never Substance use: never Substance use type: does not use Do You Feel Safe in your Home?: Yes Lack of Transportation: No Lack of Food: Never True Current Housing: I Have Housing Concerned About Future Housing: No Difficulty Paying Gas/Electric Bills: No Difficulty Paying for Meds: No Currently Unemployed: No Education: High School Diploma/GED Difficulty w/ Childcare or Family Care: No Living arrangements: with family Occupation/Education: retired Gender identity (if verbalized by the patient): Male Sexual Orientation (if Verbalized by the Patient): Straight or Heterosexual Spiritual care concerns: No Anes - Eval Final PreProcedure Day of Procedure 08/20/24 14:38 Patient weight: obese Heart: regular rate and rhythm Lungs: clear to auscultation Airway: Mallampati scale class II Neurological: alert and oriented Last oral intake: >/= 8 hours ASA classification: III Emergent: no Anesthetic plan: proceed Anesthesia type and monitoring: general GIVS Results Review: All pre-operative results and documents have been reviewed as part of the pre- operative evaluation. Informed Consent: The patient's anesthetic plan and its attendant risks and benefits were discussed with the patient/family/POA. Questions were solicited and answers provided to the satisfaction of the patient/family/POA.
[2024-08-20 14:48] VITALS: BP 136/87; PULSE 59; RESP 22; O2SAT 96
[2024-08-20 14:58] VITALS: BP 146/98; PULSE 60; RESP 20; O2SAT 98
== END 2024-08-20 15:24 | disposition home or self-care (01) ==
PROVIDERS: PCP Family Medicine; Visit Provider Internal Medicine Gastroenterology
PROC: 0DJ08ZZ Inspection of Upper Intestinal Tract, Via Natural or Artificial Opening Endoscopic (ICD-10-PCS; CPT 43239; principal; 2024-08-20 14:30)
DX: K21.9 Gastro-esophageal reflux disease without esophagitis (principal); E66.9 Obesity, unspecified; Z68.36 Body mass index [BMI] 36.0-36.9, adult
CPT/HCPCS: 43239; 88305; J7120

== ENCOUNTER 2024-09-02 12:03 | Outpatient (CLI) | payer MEDICARE, SELFPAY ==
[2024-09-02 12:54] LABS: Hemoglobin 12.8 g/dL (14.0-18.0); Mean Corpuscular Hemoglobin 29.8 pg (26-34); Mean Corpuscular Volume 93.2 fl (80-100); Platelet Count Result 218 k/mm3 (150-375); Red Blood Count 4.29 M/mm3 (4.6-6.20); Red Cell Distribution Width 13.2 % (11.5-14.5); White Blood Count 5.3 K/mm3 (4.5-10.0)
[2024-09-02 13:04] LABS: Add Urine Microscopic? NO; Appearance Urine Clear (Clear); Bilirubin Urine Negative (Negative); Blood Urine Negative (Negative); Color Urine Yellow (Yellow); Glucose Urine UA Negative (Negative); Ketones Urine Trace mg/dL (Negative); Leukocyte Esterase Ur Negative LEU/UL (Negative); Nitrate Urine Negative (Negative); Protein Urine Negative (Negative); Specific Grav Ur 1.024 (1.001-1.035)
--- OUTSIDE RECORDS SUMMARY | 2024-09-02 13:54 | XMS_ITS | Clinical Summary ---
Author Organization [facility] Address [address] [place] [address] Care Team Providers Care Doubling Machine Operator Name Role Phone Jim Whalen MD Primary Care Provider [phone] Allergies No known active allergies Medications escitalopram [...] 1962 Annual Physical 1965 Hepatitis C 1980 Pneumococcal Vaccine: 50+ Years (1 of 1 - PCV) 2012 Zoster Vaccines (1 of 2) 2012 COVID-19 [...] complete this topic Insurance [employer] Care Teams Doubling Machine Operator Relationship Specialty Start Date End Date Jim Whalen MD [address] [place] [address] PCP - General FAMILY PRACTICE 08/20/21
[2024-09-02 14:52] LABS: Alanine Aminotransferase 29 U/L (6-50); Alkaline Phosphatase 74 U/L (38-126); Anion Gap 5 mmol/L (4-12); Aspartate Amino Transferase 24 U/L (17-59); Bilirubin,Total 0.4 mg/dL (0.2-1.3); Blood Urea Nitrogen 17 mg/dL (9-20); Calcium 8.8 mg/dL (8.4-10.2); Carbon Dioxide 30 mmol/L (22-30); Chloride 104 mmol/L (98-107); Cholesterol 119 mg/dL (0-200); Estimated Glomerular Filt Rate > 60; Glucose 104 mg/dL (65-110); HDL Direct 29 mg/dL; Potassium 4.4 mmol/L (3.4-5.0); Sodium 139 mmol/L (137-145); Triglycerides 64 mg/dL (<150)
[2024-09-02 15:04] LABS: LDL Cholesterol Direct 69 mg/dL
[2024-09-02 15:22] LABS: Prostate Specific Antigen 1.1 ng/mL (< OR = 4.0)
== END 2024-09-02 12:04 | disposition home or self-care (01) ==
PROVIDERS: PCP Family Medicine; Visit Provider Family Medicine
DX: R35.1 Nocturia (principal); I10 Essential (primary) hypertension; Z00.00 Encounter for general adult medical examination without abnormal findings; E78.5 Hyperlipidemia, unspecified; R53.83 Other fatigue
CPT/HCPCS: 36415; 80053; 80061; 81003; 84153; 84443; 85027

== ENCOUNTER 2025-04-21 11:54 | Outpatient (CLI) | payer MEDICARE, SELFPAY ==
--- NOTE | ~2025-04-21 | XR_ITS ---
XR_CERV2-3V_CR Indication: W19.XXXA - Unspecified fall, initial encounter Comparison: None Findings: Anterior fixation of C5 on C6, the hardware is intact. No fracture or subluxation. Moderate loss of the remaining disc height throughout. Soft tissues unremarkable Impression: No acute abnormality. Reviewed, dictated and finalized at location P. AL DRILL OPERATOR FOR PLASTIC Impression: No acute abnormality.
--- NOTE | ~2025-04-21 | XR_ITS ---
EXAMINATION: XR shoulder RT min 2V, 04/21/2025 12:20 PRODUCTION BROACHING MACHINE OPERATOR HISTORY: W19.XXXA - Unspecified fall, initial encounter COMPARISON: No comparisons available. Findings: No acute fracture or malalignment. Moderate degenerative changes Soft tissues unremarkable. Impression: No acute fracture or malalignment. Reviewed, dictated and finalized at location P. UCTION BROACHING MACHINE OPERATOR Impression: No acute fracture or malalignment.
[2025-04-22 07:09] LABS: Measles Antibodies, IgG >300.0 AU/mL (Immune >16.4); Rubella Antibodies, IgG 2.05 index (Immune >0.99)
== END 2025-04-21 11:55 | disposition home or self-care (01) ==
PROVIDERS: PCP Family Medicine
DX: M54.2 Cervicalgia (principal); M25.511 Pain in right shoulder; W19.XXXA Unspecified fall, initial encounter
CPT/HCPCS: 36415; 72040; 73030; 86735; 86762; 86765